=== PATIENT | male | born 1965 | race Caucasian/White ===

== ENCOUNTER 2020-03-23 15:54 | Outpatient (REF) | payer OTHER, SELFPAY | END 2020-03-23 15:55 | disposition home or self-care (01) | LOC: HO.LAB 15:54 | PROVIDERS: PCP Internal Medicine; Visit Provider Internal Medicine | DX: Z20.828 Contact with and (suspected) exposure to other viral communicable diseases (principal) | CPT/HCPCS: U0003 ==

== ENCOUNTER 2020-06-21 13:44 | Outpatient (REF) | payer OTHER, SELFPAY | END 2020-06-21 13:45 | disposition home or self-care (01) | LOC: HO.LAB 13:44 | PROVIDERS: PCP Internal Medicine; Visit Provider Internal Medicine | DX: Z20.822 Contact with and (suspected) exposure to COVID-19 (principal) | CPT/HCPCS: 36415; C9803; U0003 ==

== ENCOUNTER 2020-11-10 09:54 | Outpatient (REF) | payer OTHER, SELFPAY ==
[2020-11-10 10:48] LABS: Anion Gap 11 (12-20); Blood Urea Nitrogen 14 mg/dL (9-16); Calcium 8.5 mg/dL (8.4-10.2); Carbon Dioxide 26 mmol/L (22-29); Chloride 107 mmol/L (96-108); Estimated Glomerular Filt Rate > 60; Glucose Random 111 mg/dL (60-115); Potassium 4.3 mmol/L (3.3-5.1); Sodium 140 mmol/L (135-145)
== END 2020-11-10 09:55 | disposition home or self-care (01) ==
LOC: HO.LAB 09:54
PROVIDERS: PCP Internal Medicine; Visit Provider Internal Medicine
DX: I10 Essential (primary) hypertension (principal)
CPT/HCPCS: 36415; 80048

== ENCOUNTER → 2021-07-19 11:52 | Outpatient (BNVA) | payer OTHER, SELFPAY | PROVIDERS: PCP Internal Medicine; Visit Provider Urology ==

== ENCOUNTER 2021-08-06 10:06 | Outpatient (REF) | payer OTHER, SELFPAY ==
[2021-08-06 12:43] LABS: Hematocrit 43.8 % (42.0-52.0); Hemoglobin 14.5 g/dl (14.0-18.0); Mean Corpuscular HGB Conc 33.1 g/dl (31.0-36.0); Mean Corpuscular Hemoglobin 29.4 pg (27.0-33.0); Mean Corpuscular Volume 88.8 fL (80.0-98.0); Mean Platelet Volume 9.4 fL (9.4-12.4); Platelet Count 243 X10*3/uL (160-400); Red Blood Count 4.93 X10*6/uL (4.60-5.80); Red Cell Distribution Width 12.2 % (11.0-16.0)
[2021-08-06 13:11] LABS: Alanine Aminotransferase 11 U/L (0-40); Albumin Level 4.4 g/dL (3.5-5.0); Alkaline Phosphatase 76 U/L (39-117); Anion Gap 12 (12-20); Aspartate Amino Transferase 26 U/L (5-37); Bilirubin Total 0.7 mg/dL (0.0-1.0); Blood Urea Nitrogen 10 mg/dL (9-16); Calcium 8.9 mg/dL (8.4-10.2); Carbon Dioxide 27 mmol/L (22-29); Chloride 105 mmol/L (96-108); Estimated Glomerular Filt Rate > 60; Glucose Random 102 mg/dL (60-115); Potassium 4.7 mmol/L (3.3-5.1); Sodium 139 mmol/L (135-145); Total Protein 7.3 g/dL (6.5-8.0)
== END 2021-08-06 10:07 | disposition home or self-care (01) ==
LOC: HO.LAB 10:06
PROVIDERS: PCP Internal Medicine; Visit Provider Nurse Practitioner Family
DX: Z12.11 Encounter for screening for malignant neoplasm of colon (principal); F17.210 Nicotine dependence, cigarettes, uncomplicated
CPT/HCPCS: 36415; 80053; 85027; 99202

== ENCOUNTER 2021-08-20 10:50 | Outpatient (REF) | payer OTHER, SELFPAY ==
--- NOTE | 2021-08-20 | PFT_ITS ---
Forced vital capacity 84%, FEV1 77%, FEV1/FVC ratio is 72, NJT40-20 57%. MVV 82%. Post bronchodilator therapy, there is a significant improvement in SOG64-44, to almost normal. Total lung capacity 96%. Residual volume is 127%. Diffusion capacity 90%. CONCLUSION: A mild degree of obstructive airway disorder, mainly involving the smaller airways. There is good response to bronchodilator therapy. These findings are consistent with a mild degree of bronchial asthma. Clinical correlation recommended. MD MARZENA Castillo/MODL / [phone]
== END 2021-08-20 10:51 | disposition home or self-care (01) ==
LOC: HO.RESP 10:50
PROVIDERS: PCP Internal Medicine; Visit Provider Internal Medicine
DX: J44.9 Chronic obstructive pulmonary disease, unspecified (principal); F17.210 Nicotine dependence, cigarettes, uncomplicated
CPT/HCPCS: 94060; 94727; 94729

== ENCOUNTER 2021-09-11 08:55 | Day surgery (SDC) | payer OTHER, SELFPAY ==
--- NOTE | 2021-09-06 12:03 | HO.ANESPROP2 ---
Documented by User: Nayeli Pratt NP 09/06/21 12:05 HPI - Anesthesia Eval Consult details Narrative: 56yo M for Colonoscopy Suboxone daily for OUD PMFSH Active Problems Active Problems: All Active Problems (Updated 09/04/21 @ 10:19 by Estelle Car, RN) Nocturia more than twice per night (Acute) Bladder outlet obstruction (Acute) Past Medical History Medical History Back pain Chronic obstructive pulmonary disease (COPD) Colon cancer screening Depression Hand pain Hx of hepatitis C Opioid dependence Family History Family History Maternal Grandmother Cancer Social History Social History Household Members: Family Alcohol intake: current Alcohol intake frequency: holidays/special occasions only Tobacco use type: Cigar Cigarettes Per Day: 10 Use of substances other than those prescribed or required for medical reasons: No Have you been hit, kicked, punched, or otherwise hurt by someone within the past year? If so, by whom?: No Are you DNR?: No Advance Directives: No Advance Directives Information Provided: Yes Recently lost weight without trying: No Nutrition Risks: No Nutritional Risk Meds Allergies Allergy/AdvReac Type Severity Reaction Status Date / Time No Known Allergies Allergy Verified 09/04/21 10:19 Home Medications Medication Instructions Recorded Confirmed Last Taken Type albuterol sulfate 90 mcg/actuation 2 puff INHALATION Q4-6H PRN 11/05/20 09/04/21 Unknown History aerosol inhaler (ProAir HFA) blood pressure monitor (Blood #1 ea 11/05/20 Unknown History Pressure Kit) buprenorphine 8 mg-naloxone 2 mg 1 film BUCCAL DAILY 11/05/20 09/04/21 09/11/21 History sublingual film (Suboxone) cyclobenzaprine 10 mg tablet 10 mg PO BEDTIME 11/05/20 09/04/21 Unknown History lisinopril 5 mg tablet 5 mg PO DAILY 11/05/20 09/04/21 Unknown History naloxone 4 mg/actuation nasal 4 mg INTRANASAL Q2M PRN 11/05/20 09/04/21 Unknown History spray (Narcan) atorvastatin 80 mg tablet 80 mg PO DAILY 07/19/21 09/04/21 Unknown History ergocalciferol (vitamin D2) 1,250 1,250 mcg PO QWEEK 07/19/21 09/04/21 Unknown History mcg (50,000 unit) capsule rosuvastatin 20 mg tablet 20 mg PO DAILY 07/19/21 09/04/21 Unknown History Exam Exam Date and Time: September 06, 2021 1203 Pertinent Lab Results Pertinent Lab Results: Laboratory Tests 08/06/21 08/06/21 12:00 12:00 WBC 6.0 Hgb 14.5 Hct 43.8 Plt Count 243 Sodium 139 Potassium 4.7 Chloride 105 Carbon Dioxide 27 BUN 10 Creatinine 0.86 Narrative Narrative: PFT 07/2021 CONCLUSION:? A mild degree of obstructive airway disorder, mainly involving the smaller airways. ? There is good response to bronchodilator therapy. ? These findings are consistent with a mild degree of bronchial asthma. ? Clinical correlation recommended. Assessment and Plan Assessment Anesthesia Assessment: Chart Reviewed Documented by User: Audrey Navarrete MD 09/11/21 10:05 [facility], [facility] Past Medical History Medical History Back pain Chronic obstructive pulmonary disease (COPD) Colon cancer screening Depression Hand pain Hx of hepatitis C Opioid dependence Family History Family History Maternal Grandmother Cancer Surgical History History of Problems with Anesthesia: No Social History Social History Household Members: Family Alcohol intake: current Alcohol intake frequency: holidays/special occasions only Tobacco use type: Cigar Cigarettes Per Day: 10 Use of substances other than those prescribed or required for medical reasons: No Have you been hit, kicked, punched, or otherwise hurt by someone within the past year? If so, by whom?: No Are you DNR?: No Advance Directives: No Advance Directives Information Provided: Yes Recently lost weight without trying: No Nutrition Risks: No Nutritional Risk Meds Allergies Allergy/AdvReac Type Severity Reaction Status Date / Time No Known Allergies Allergy Verified 09/04/21 10:19 Home Medications Medication Instructions Recorded Confirmed Last Taken Type albuterol sulfate 90 mcg/actuation 2 puff INHALATION Q4-6H PRN 11/05/20 09/04/21 Unknown History aerosol inhaler (ProAir HFA) blood pressure monitor (Blood #1 ea 11/05/20 Unknown History Pressure Kit) buprenorphine 8 mg-naloxone 2 mg 1 film BUCCAL DAILY 11/05/20 09/04/21 09/11/21 History sublingual film (Suboxone) cyclobenzaprine 10 mg tablet 10 mg PO BEDTIME 11/05/20 09/04/21 Unknown History lisinopril 5 mg tablet 5 mg PO DAILY 11/05/20 09/04/21 Unknown History naloxone 4 mg/actuation nasal 4 mg INTRANASAL Q2M PRN 11/05/20 09/04/21 Unknown History spray (Narcan) atorvastatin 80 mg tablet 80 mg PO DAILY 07/19/21 09/04/21 Unknown History ergocalciferol (vitamin D2) 1,250 1,250 mcg PO QWEEK 07/19/21 09/04/21 Unknown History mcg (50,000 unit) capsule rosuvastatin 20 mg tablet 20 mg PO DAILY 07/19/21 09/04/21 Unknown History Exam Airway Mallampati Class: II TM Dist: >3cm Neck ROM: Full Loose/Missing/Broken Teeth: No Heart: RRR Lungs: CTA Assessment and Plan Assessment Anesthesia Assessment: Anesthesia Plan Discussed Final Anesthetic Review History of Problems with Anesthesia: No NPO: Yes ASA Class: II Final Preanesthetic Review: Meds/Allgs Chart Reviewed, Consent Obtained/Reviewed and Anes Risks/Benef Reviewed Patient Risk: Low Procedure Risk: Low Anesthetic Plan Anesthetic Plan: MAC: Disposition: Standard PACU
[2021-09-11 08:47] VITALS: BMI 34.5
[2021-09-11 09:00] VITALS: BP 168/75; PULSE 74; RESP 18; TEMP 36.2; O2SAT 95
[2021-09-11] MEDS: Lactated Ringers 1,000 ML 100 ML IVCONT (09:19)
--- NOTE | 2021-09-11 09:48 | MHC.SHP ---
Pre-Procedural Eval Section A Date of Service: 09/11/21 Section B Chief Complaint: screening Relevant Family History (Specify if Yes): No Relevant Social History: Tobacco Use Present Medications: see Short Stay Collaborative assessment Medical History: Significant History (Back pain Chronic obstructive pulmonary disease (COPD) Colon cancer screening Depression Hand pain Hx of hepatitis C Opioid dependence) History of Previous Operations: No relevant previous surgery Allergies: Allergies Allergy/AdvReac Type Severity Reaction Status Date / Time No Known Allergies Allergy Verified 09/04/21 10:19 Review of Systems Sugical H&P ROS: Negative: Constitution, Cardiovascular, Respiratory, Neurological, Psychiatric, Hem-Onc, Allergic/Immunologic, Gastrointestinal, Genitourinary, Musculoskeletal, Integumentary, Endocrine and Eyes/Ears/Nose/Throat Exam Surgical H&P Exam: Normal: HEENT, Normal: Heart, Normal: Lungs, Normal: Extremities, Normal: Abdomen, Normal: Skin and Normal: Neurological Plan Diagnosis/Plan: Unchanged I have reviewed the history and physical and performed a pertinent physical examination on my patient. No changes have occurred unless specified.
--- NOTE | 2021-09-11 09:49 | P.BOP_ITS ---
Brief Operative Note Date of Service: 09/11/21 Pre-op diagnosis: colon screening Post-op diagnosis: same Procedure: see op note Surgeon: Jennifer Pedersen MD Anesthesia: MAC Was an Radial Drill Operator For Plastic used for this Procedure?: No Estimated blood loss (mL): 0 Condition: stable Disposition: PACU
--- NOTE | 2021-09-11 09:50 | P.OP_ITS ---
Operative Note Operative Note Date of Service: 09/11/21 Narrative: Operative Information Procedure Description: Colonoscopy Indication: colon screening Anesthesia: MAC COLONOSCOPY Instrument: Olympus variable stiffness ADULT scope 190L Colonoscopy Monitoring: Vital signs and clinical assessment, continuous EKG monitoring, Pulse oximetry, Carbon Dioxide monitoring and blood pressure monitoring were done throughout the procedure. Colon withdrawal time was 13 minutes. Procedure: The patient was placed in the left lateral decubitis position and pre-procedure medications were administered. After a digital rectal examination of the ano-rectum, the video colonoscope was inserted into the rectum and advanced through the colon to the cecum/TI. The colonoscope was slowly withdrawn in a retrograde panoramic fashion and the colon mucosa was carefully examined including a retroflexed view of the rectum. Findings and interventions are described below. Procedure Difficulty: moderate due to looping, left lower abdo pressure applied Findings: Terminal Ileum-normal Cecum:normal Ascending Colon: 6-8 mm sessile polyp removed with cold forceps Transverse Colon -normal Descending Colon:normal Sigmoid Colon: 7-8 mm sessile polyp removed with cold forceps Rectum: Retroflexion with moderate sized internal hemorrhoids, grade I Anorectum - normal Colon preparation: [place] Bowel Preparation Scale Right colon; 2 Transverse colon: 2 Left colon; 2 (0 = Unprepared colon segment with mucosa not seen due to solid stool that cannot be cleared. 1 = Portion of mucosa of the colon segment seen, but other areas of the colon segment not well seen due to staining, residual stool and/or opaque liquid. 2 = Minor amount of residual staining, small fragments of stool and/or opaque liquid, but mucosa of colon segment seen well. 3 = Entire mucosa of colon segment seen well with no residual staining, small fragments of stool or opaque liquid) Impression and Post Procedure Diagnosis: polyps internal hemorrhoids Plan: High fiber diet leaflet Avoid straining at stool, epsom salts and sitz bath, anusol supps or cream Repeat Colonoscopy in 5 years if adenomatous polyps, 10 yrs if hyperplastic or earlier if clinically indicated Above findings were reviewed with the patient and relevant handouts were provided if indicated.
[2021-09-11 10:28] VITALS: BP 110/65; PULSE 55; RESP 18; TEMP 36.2; O2SAT 97
[2021-09-11 10:43] VITALS: BP 115/73; PULSE 57; RESP 16; TEMP 36.2; O2SAT 95
== END 2021-09-11 11:49 ==
LOC: HO.SSS 08:56
PROVIDERS: PCP Internal Medicine; Visit Provider Internal Medicine Gastroenterology
PROC: 0DJD8ZZ Inspection of Lower Intestinal Tract, Via Natural or Artificial Opening Endoscopic (ICD-10-PCS; CPT 45378; principal; 2021-09-11 10:10)
DX: Z12.11 Encounter for screening for malignant neoplasm of colon (principal); D12.2 Benign neoplasm of ascending colon; K63.5 Polyp of colon; K64.0 First degree hemorrhoids; Z86.19 Personal history of other infectious and parasitic diseases; J44.9 Chronic obstructive pulmonary disease, unspecified; F32.9 Major depressive disorder, single episode, unspecified; M54.9 Dorsalgia, unspecified; F11.20 Opioid dependence, uncomplicated; F17.290 Nicotine dependence, other tobacco product, uncomplicated
CPT/HCPCS: 45380; 88305

== ENCOUNTER → 2021-09-17 13:11 | Outpatient (BNVA) | payer OTHER, SELFPAY | PROVIDERS: PCP Internal Medicine; Visit Provider Urology | DX: Z13.89 Encounter for screening for other disorder (principal) ==

== ENCOUNTER → 2021-10-22 10:57 | Outpatient (BNVA) | payer OTHER, SELFPAY | PROVIDERS: PCP Internal Medicine; Referring Provider Internal Medicine; Visit Provider Nurse Practitioner Family | DX: K64.8 Other hemorrhoids (principal); K59.04 Chronic idiopathic constipation; D36.9 Benign neoplasm, unspecified site; Z98.890 Other specified postprocedural states | CPT/HCPCS: 99212 ==

== ENCOUNTER → 2022-09-23 12:10 | Outpatient (BNVA) | payer OTHER, SELFPAY | PROVIDERS: PCP Internal Medicine; Visit Provider Nurse Practitioner Family | DX: K64.8 Other hemorrhoids (principal); K59.01 Slow transit constipation | CPT/HCPCS: 99212 ==

== ENCOUNTER 2023-01-05 11:33 | Outpatient (REF) | payer OTHER, SELFPAY ==
[2023-01-05 14:47] LABS: Alanine Aminotransferase 6 U/L (0-40); Albumin Level 4.3 g/dL (3.5-5.0); Alkaline Phosphatase 61 U/L (39-117); Aspartate Amino Transferase 23 U/L (5-37); Bilirubin Direct 0.1 mg/dL (0.0-0.5); Bilirubin Total 0.5 mg/dL (0.0-1.0); Total Protein 7.5 g/dL (6.5-8.0)
[2023-01-06 04:53] LABS: HIV AB/AG Nonreactive (Nonreactive); HIV Num 1 0.08 S/CO (0.00-0.99)
[2023-01-06 05:05] LABS: ~Hepatitis C Antibody Reactive (Nonreactive)
[2023-01-13 13:53] LABS: HCV Log PCR <1.18 NOT DETECTED Log IU/mL (NOT DETECTED); HepC Viral Load <15 NOT DETECTED IU/mL (NOT DETECTED)
== END 2023-01-05 11:34 | disposition home or self-care (01) ==
LOC: HO.HHCL 11:33
PROVIDERS: Visit Provider Emergency Medicine
DX: Z11.4 Encounter for screening for human immunodeficiency virus [HIV] (principal); F11.20 Opioid dependence, uncomplicated
CPT/HCPCS: 36415; 80076; 86803; 87389; 87522

== ENCOUNTER 2023-03-05 15:23 | Outpatient (AMB) | payer OTHER, SELFPAY ==
--- NOTE | 2021-09-17 13:11 | A.OFFVIS_ITS ---
Intake Intake Visit Reasons: 6-8 week follow-up Intake Note: Patient is present for follow up In School Suspension Aide Required: Yes In School Suspension Aide Name: lance tay Information Interpreted: non-clinical & clinical Accompanied by: Self / Same As Patient Allergies No Known Allergies Allergy (Verified 09/23/22 12:16) HPI HPI Comments History of Present Illness Details Rehan is a pleasant Italian-speaking male. He is a patient of Dr. Conrad. Seen for following urologic conditions - lower urinary tract symptoms Telemedicine evaluation 15 minute consultation Italian translation provided in office by qualified curator medical museum Video attempted Lower urinary tract symptoms Primary issue hesitancy and incomplete emptying Requires going back Nocturia x3 No prior medications Concurrent conditions include hypertension, dyslipidemia, opiate use PSA - 03/11 0.5 Trial of alpha-renita with terazosin 6-8 week follow-up with PVR PFSH Medical History Back pain Chronic obstructive pulmonary disease (COPD) Colon cancer screening Depression Hand pain Hx of hepatitis C Opioid dependence Family History Maternal Grandmother Cancer Social History Household Members: Family Alcohol intake: current Alcohol intake frequency: holidays/special occasions only Tobacco use type: Cigar Cigarettes Per Day: 10 Review of Systems Const All systems reviewed & are unremarkable except as noted in HPI and below Reports no additional complaints Resp Reports no additional complaints GI Reports no additional complaints Reports as per HPI Musc Reports no additional complaints Physical Exam Telemedicine evaluation Appropriate responses Regular breathing rate and rhythm HEENT Head: Yes normal to inspection Ears: hearing grossly normal bilaterally Eyes General: appearance normal, both eyes and all related structures Neck Neck: Yes normal visual inspection Chest Chest palpation & inspection: normal inspection of the chest Resp Effort & Inspection: normal respiratory effort and able to speak in complete sentences Assessment & Plan Assessment & Plan (1) Nocturia more than twice per night: Code(s): R35.1 - Nocturia (2) Bladder outlet obstruction: Code(s): N32.0 - Bladder-neck obstruction Plan Continue terazosin Patient Instructions: Imaging studies, laboratory and physical exam results were discussed and reviewed in detail. No major barriers to patient understanding were identified. An opportunity to ask questions regarding the treatment plan was provided. All questions were answered. The patient expressed understanding and agreement with the above treatment plan. The patient is aware they should contact our office by phone for worsening of their current condition or the appearance of new urologic symptoms. Compliance is encouraged with any medications and followup testing that is ordered. It is a privilege to participate in the urologic care of your patient. If you have any questions or concerns regarding treatment for the above conditions, or other urologic issues, please do not hesitate to contact me. The office telephone contact is [phone]. This note is constructed using voice recognition software. While every effort has been made to ensure accuracy internal grinder set up operator errors may have been included. Yours sincerely, Dr Harrison Ray MD, [facility] - Urology Providers of Expert, Compassionate Care for the Genitourinary System Telehealth Telehealth Location of provider rendering services: practice address Location of patient: address on file Patient Identification confirmed using: Name, : Yes Telehealth method: video Patient verbally consented to treatment: Yes Patient verbally consented to billing insurance company: Yes Patient informed of any privacy concerns related to visit: Yes Coding Level of Care Code Tele Est Pt Level 3 (02320) Diagnoses Nocturia more than twice per night R35.1 Bladder outlet obstruction N32.0
== END 2023-03-05 15:23 | disposition home or self-care (01) ==
PROVIDERS: PCP Internal Medicine; Visit Provider Urology
DX: R35.1 Nocturia (principal); N32.0 Bladder-neck obstruction
CPT/HCPCS: 99213

== ENCOUNTER → 2023-03-05 15:23 | Outpatient (BNVA) | payer OTHER, SELFPAY | PROVIDERS: PCP Internal Medicine; Visit Provider Urology ==

== ENCOUNTER 2023-04-02 11:29 | Outpatient (REF) | payer OTHER, SELFPAY ==
[2023-04-02 13:52] LABS: Anion Gap 11 (12-20); Blood Urea Nitrogen 12 mg/dL (9-16); Calcium 8.3 mg/dL (8.4-10.2); Carbon Dioxide 26 mmol/L (22-29); Chloride 108 mmol/L (96-108); Cholesterol 215 mg/dL (<200); Estimated Glomerular Filt Rate > 60; Glucose Random 101 mg/dL (60-115); HDL Cholesterol 36 mg/dL (>40); LDL Cholesterol Calculated 159 mg/dL (<100); Potassium 4.2 mmol/L (3.3-5.1); Sodium 141 mmol/L (135-145); Triglycerides 102 mg/dL (<150)
[2023-04-02 14:01] LABS: Vitamin D 25-OH Total 34.6 ng/mL (>30)
== END 2023-04-02 11:30 | disposition home or self-care (01) ==
LOC: HO.HHCL 11:29
PROVIDERS: Visit Provider Internal Medicine
DX: I10 Essential (primary) hypertension (principal); E78.2 Mixed hyperlipidemia; E55.9 Vitamin D deficiency, unspecified
CPT/HCPCS: 36415; 80048; 80061; 82306

== ENCOUNTER 2023-11-02 10:18 | Outpatient (REF) | payer OTHER, SELFPAY ==
[2023-11-02 11:57] LABS: Estimated Average Glucose 120 mg/dL; Hemoglobin A1C 151.6134 umol/L; Hemoglobin A1c % 5.8 % (<6.0)
[2023-11-02 12:12] LABS: Anion Gap 14 (12-20); Blood Urea Nitrogen 11 mg/dL (9-16); Calcium 8.8 mg/dL (8.4-10.2); Carbon Dioxide 24 mmol/L (22-29); Chloride 106 mmol/L (96-108); Cholesterol 242 mg/dL (<200); Estimated Glomerular Filt Rate > 60; Glucose Random 107 mg/dL (60-115); HDL Cholesterol 36 mg/dL (>40); LDL Cholesterol Calculated 173 mg/dL (<100); Potassium 4.4 mmol/L (3.3-5.1); Sodium 140 mmol/L (135-145); Triglycerides 168 mg/dL (<150)
[2023-11-02 13:48] LABS: Reflex LDLD? No
== END 2023-11-02 10:19 | disposition home or self-care (01) ==
LOC: HO.HHCL 10:18
PROVIDERS: Visit Provider Internal Medicine
DX: E78.2 Mixed hyperlipidemia (principal); N40.1 Benign prostatic hyperplasia with lower urinary tract symptoms; I10 Essential (primary) hypertension
CPT/HCPCS: 36415; 80048; 80061; 83036; 84153

== ENCOUNTER 2024-08-04 11:27 | Outpatient (REF) | payer OTHER, SELFPAY ==
[2024-08-04 14:06] LABS: Alanine Aminotransferase 32 U/L (0-40); Alkaline Phosphatase 81 U/L (39-117); Anion Gap 11 (12-20); Aspartate Amino Transferase 69 U/L (5-37); Bilirubin Direct 0.2 mg/dL (0.0-0.5); Bilirubin Total 0.6 mg/dL (0.0-1.0); Blood Urea Nitrogen 17 mg/dL (9-16); Calcium 8.3 mg/dL (8.4-10.2); Carbon Dioxide 24 mmol/L (22-29); Chloride 107 mmol/L (96-108); Cholesterol 219 mg/dL (<200); Estimated Glomerular Filt Rate > 60; Glucose Random 119 mg/dL (60-115); HDL Cholesterol 38 mg/dL (>40); LDL Cholesterol Calculated 133 mg/dL (<100); Potassium 4.2 mmol/L (3.3-5.1); Sodium 138 mmol/L (135-145); Total Protein 7.4 g/dL (6.5-8.0); Triglycerides 242 mg/dL (<150)
[2024-08-04 14:43] LABS: Reflex LDLD? No
--- OUTSIDE RECORDS SUMMARY | 2024-08-04 14:48 | XMS_ITS | Encounter Summary ---
Author Organization [employer] Address [address] [place] [address] 7 [place] [address] Care Team Providers Care Brancher Name Role Phone Rosario Conrad MD Primary Care Provider + Reason for Visit * Reason Comments Med Refill Encounter Details Date Type Department Care Team ([facility] st Contact Info) Description 01/13/2024 Refill [facility] [address] [place] [address] Shanwee Odom MD [address] [place] [address] Opioid dependence in remission (CMS/HCC) Social History Tobacco Use Types Packs/Day Years Used Date Smoking Tobacco: Every Day Cigarettes Smokeless Tobacco: Never Alcohol Use Standard Drinks/Week Comments Yes 0 (1 standard drink = 0.6 oz pur e alcohol) rare Alcohol Answer Date Recorded Frequency of Alcohol Consumption Not on file 09/30/2023 Average Number of Drinks Not on file 024 Frequency of Binge Drinking Not on file 12/2023 Score 0 09/30/2023 Depression Answer Date Recorded Patient Health Questionnaire-9 Score 0 09/30/2023 Patient Health Questionnaire-9 Score 0 09/30/2023 Last PHQ-9: Questionnaire Data Not on file 0 09/30/2023 Housing Stability Answer Date Recorded What is your housing situation today? I have nirmal carey 09/30/[address] you li ve. Do you have problems with any of the following? None of the above 09/30/2023 Food Insecurity Answer Date Recorded Within the past 12 months, y ou worried that your food would run out before you got money to buy more: Never True 09/30/2023 Within the past 12 months,th e food you bought just didn't last and you didn't have enough money to get more: Never True 12/2023 Transportation Answer Date Recorded In the past 12 months, has l ack of transportation kept you from medical appts, meetings, work or from getting things needed for daily living? No 09/30/2023 Utilities Answer Date Recorded In the past 12 months, has t he electric, gas, oil or water company threatened to shut off services in your home? No 09/30/2023 Depression Answer Date Recorded Patient Health Questionnaire-2 Score 0 09/30/2023 Sex and Gender Information Value Date Recorded Sex Assigned at Male 03/24/2022 10:16 AM EDT Legal Sex Male 10:16 AM EDT Gender Identity Male 03/24/2022 10:16 AM EDT Sexual Orientation Straight 03/24/2022 10 :16 AM EDT documented as of this encounter Plan of Treatment Upcoming Encounters Date Type Department Care Team (Late st Contact Info) Description 08/31/2024 9:00 AM EDT Clinical Support [facility] [address] [place] [id number] Julio Cesar Kemp, EDVANG [address] [place] [address] documented as of this encounter Visit Diagnoses Diagnosis Opioid dependence in remission (CMS/HCC) Opioid type dependence, in remission documented in this encounter Additional Health Concerns Assessment Noted Time PHQ-9 Depression Total Score: 0 09/30/19 24 10:11 AM EDT documented as of this encounter Care Teams Brancher Relationship Specialty Start Date End Date Rosario Conrad MD [address] [place] [id number] PCP - General Family Medicine 01/12/17 documented as of this encounter
--- OUTSIDE RECORDS SUMMARY | 2024-08-04 14:48 | XMS_ITS | Encounter Summary ---
Author Organization [employer] Address [address] [place] [address] 7 [place] [address] Care Team Providers Care Vibration Technician Name Role Phone Rosario Conrad MD Primary Care Provider + Reason for Visit * Reason Comments Pre-visit Planning SDOH screening negat deb and tobacco screening negative Encounter Details Date Type Department Care Team (Late st Contact Info) Description 07/26/2024 Patient Outreach [facility] [address] [place] [address] Rosario Conrad MD [address] [place] [address] Pre-visit Planning (SDOH screening negative and tobacco screening negative) Social History Tobacco Use Types Packs/Day Years [...] Recorded Patient Health Questionnaire-2 Score 0 09/30/2023 Internet Access Answer Date Recorded Internet Access Q1 Yes 07/26/2024 Internet Access Q2 Not on file 07/26/2024 Sex and Gender Information Value Date Recorded Sex Assigned at Male 03/24/2022 10:16 AM EDT Legal Sex Male 10:16 AM EDT Gender Identity Male 03/24/2022 10:16 AM EDT Sexual Orientation Straight 03/24/2022 10 :16 AM EDT documented as of this encounter Progress Notes * Ashley Ceballos - 07/26/2024 10:52 AM EST RADHA Ramirez placed successful outbound call to patient for pre-visit planning. Patient name and confirmed. Patient confirms appt date and time, and has transportation. Biggest concern for appointment at this time is joint pain and circulation of legs Patient advised to bring to appointment a photo id and insurance card. Appropriate screenings completed in anticipation of appointment. documented in this encounter Plan of Treatment Upcoming Encounters Date Type Department Care Team (Late st Contact Info) Description 08/31/2024 9:00 AM EDT Clinical Support [facility] [address] [place] [address] Julio Cesar Kemp, RN [address] [place] [address] documented as of this encounter Visit Diagnoses Not on filedocumented in this encounter Additional Health Concerns Assessment Noted Time PHQ-9 Depression Total Score: 0 09/30/19 24 10:11 AM EDT documented as of this encounter Care Teams Vibration Technician Relationship Specialty Start Date End Date Rosario Conrad MD [address] [place] [id number] PCP - General Family Medicine 01/12/17 documented as of this encounter
--- OUTSIDE RECORDS SUMMARY | 2024-08-04 14:48 | XMS_ITS | Encounter Summary ---
Author Organization [employer] Address [address] [facility] [address] [place] [address] Care Team Providers Care Lumber Straightened Name Role Phone Rosario Conrad MD Primary Care Provider + Encounter Details Date Type Department Care Team (Latest Contact Info) Description 08/02/2024 Travel Social History Tobacco Use Types Packs/Day Years [...] Description 08/31/2024 9:00 AM EDT Clinical Support [facility] [address] [place] [address] Julio Cesar Kemp RN [address] [place] [address] documented as of this encounter Visit Diagnoses Not on filedocumented in this encounter Additional Health Concerns Assessment Noted Time PHQ-9 Depression Total Score: 0 09/30/19 24 10:11 AM EDT documented as of this encounter Care Teams Lumber Straightened Relationship Specialty Start Date End Date Rosario Conrad MD [address] [place] [address] PCP - General Family Medicine 01/12/17 documented as of this encounter
--- OUTSIDE RECORDS SUMMARY | 2024-08-04 14:48 | XMS_ITS | Encounter Summary ---
Author Organization [employer] Address [address] [facility] [address] [place] [address] Care Team Providers Care Chef French Name Role Phone Rosario Conrad MD Primary Care Provider + Encounter Details Date Type Department Care Team (Late st Contact Info) Description 10/21/2023 Orders Only [facility] [address] [place], [place] [phone] Provider, MD Rodolfo Social History Tobacco Use Types Packs/Day Years [...] Description 08/31/2024 9:00 AM EDT Clinical Support [facility] [address] [place] [address] Julio Cesar Kemp RN [address] [place] [address] documented as of this encounter Procedures Procedure Name Priority Date/Time Associated Diagnosis Comments COLONOSCOPY Routine 09/11/2021 8:25 AM EDT documented in this encounter Results * Hm Colonoscopy (09/11/2021 8:25 AM EDT) Historical Provider HEALTH MAINTENANCE Final Result documented in this encounter Visit Diagnoses Not on filedocumented in this encounter Additional Health Concerns Assessment Noted Time PHQ-9 Depression Total Score: 0 09/30/19 24 10:11 AM EDT documented as of this encounter Care Teams Chef French Relationship Specialty Start Date End Date Rosario Conrad MD [address] [place] [address] PCP - General Family Medicine 01/12/17 documented as of this encounter
--- OUTSIDE RECORDS SUMMARY | 2024-08-04 14:48 | XMS_ITS | Encounter Summary ---
Author Organization [employer] [facility] Address [address] [place] [address] [address] [place] [address] Care Team Providers Care Chemical Checker Name Role Phone Rosario Conrad MD Primary Care Provider + Encounter Details Date Type Department Care Team (Latest Contact Info) Description 05/31/[address] [facility] CONVERSIONS Dental, Provider, DDS Social History Tobacco Use Types Packs/Day Years Used Date Smoking Tobacco: Never Assessed Sex and Gender Information Value Date Recorded Sex Assigned at Male 03/24/2022 10:16 AM EDT Legal Sex Male 10:16 AM EDT Gender Identity Male 03/24/2022 10:16 AM EDT Sexual Orientation Straight 03/24/2022 10 :16 AM EDT documented as of this encounter Plan of Treatment Upcoming Encounters Date Type Department Care Team ( st Contact Info) Description 08/31/2024 9:00 AM EDT Clinical Support [facility] [address] [place] [address] Julio Cesar Kemp, DEVANG [address] [place] [address] documented as of this encounter Visit Diagnoses Not on filedocumented in this encounter Care Teams Chemical Checker Relationship Specialty Start Date End Date Rosario Conrad MD [address] [place] [address] PCP - General Family Medicine 01/12/17 documented as of this encounter
--- OUTSIDE RECORDS SUMMARY | 2024-08-04 14:48 | XMS_ITS | Encounter Summary ---
Author Organization [employer] Address [address] [place] [address] [place] [address] Care Team Providers Care Trigonometry Tutor Name Role Phone Rosario Conrad MD Primary Care Provider + Reason for Referral * Consultation (Routine) - Authorized Specialty Diagnoses / Procedures Referred By Godfrey t Referred To Contact Urology Diagnoses Lower urinary tract symptoms (LUTS) Rosario Conrad MD [address] [place] [address] Phone: tel: fax: [facility] [address] [place], [place] Phone: tel: fax: Referral ID Status Reason Start Date Expiration Date Visits Requested Visits Authorized [id number] Authorized Specialty Services Required 08/02/2024 08/02/2025 1 1 * Consultation (Routine) - Closed Specialty Diagnoses / Procedures Referred By Contac t Referred To Contact Occupational Therapy Diagnoses Chronic right shoulder pain Medial epicondylitis of elbow, unspecified laterality Rosario Conrad MD [address] [place] [address] Phone: tel: fax: [facility] [address], [place] Phone: tel: fax: Referral ID Status Reason Start Date Expiration Date V isits Requested Visits Authorized [id number] Closed Specialty Services Required 08/02/2024 08/02/2025 1 1 Reason for Visit * Reason Comments Lab Orders Encounter Details Date Type Department Care Team (Latest Contact Info) Description 08/02/2024 10:30 AM EDT Office Visit [facility] [address] [place], [place] [phone] Rosario Conrad MD [address] [place], [place] [phone] Benign hypertension (Primary Dx); Lower urinary tract symptoms (LUTS); Chronic obstructive pulmonary disease, unspecified COPD type (CMS/HCC); Chronic right shoulder pain; Medial epicondylitis of elbow, unspecified laterality; Uncomplicated opioid dependence (CMS/HCC); OM (onychomycosis); Class 1 obesity due to excess calories with serious comorbidity and body mass index (BMI) of 31.0 to 31.9 in adult; Dietary counseling; Exercise counseling; Encounter for immunization Social History Tobacco Use Types Packs/Day Years Used Date Smoking Tobacco: Every Day Cigarettes Smokeless Tobacco: Never Tobacco Cessation:Ready to Q uit: Not Asked; Counseling Given: Not Answered Alcohol Use Standard Drinks/Week Comments Yes 0 [...] AM EDT documented as of this encounter Last Filed Vital Signs Vital Sign Reading Time Taken Comments Blood Pressure 146/86 08/02/2024 10:31 AM EDT Pulse 57 08/02/2024 10:31 AM EDT Temperature 35.5 ??C (95.9 ??F) 08/02/2024 10:31 AM E DT Respiratory Rate 12 08/02/2024 10:31 AM EDT Oxygen Saturation 99% 08/02/2024 10:31 AM EDT Inhaled Oxygen Concentration - - Weight 105 kg (231 lb 2 oz) 08/02/2024 10:31 AM EDT Height 182.9 cm (6') 08/02/2024 10:31 AM EDT Body Mass Index 31.35 08/02/2024 10:31 AM EDT documented in this encounter Progress Notes * Rosario Conrad MD - 08/02/2024 10:30 AM EDT SUBJECTIVE: Rehan Ye is a 59 y.o. year old male who presents for follow up. Denies recent illness,injury, or hospitalization. Pt comes in for a fu on OA and labs. He reports continuing taking Lisinopril and Suboxone and doing well with the medications. He also reports having his BP and cholesterol medications. Acute Concerns: He complains of bilateral elbow and shoulder pain, along with weakness in his arms. He reports the pain to be slightly worse on the right side and takes Ibuprofen for the pain, but says it only slightly helps. Pt complains of increased urinary frequency at night, along with hesitancy. Social History Social History Narrative Not on file Patient Active Problem List Diagnosis Benign hypertension Benign localized prostatic hyperplasia with lower urinary tract symptoms (LUTS) Chronic obstructive lung disease (CMS/HCC) Contact with and (suspected) exposure to covid-19 COVID-19 Depressive disorder Mixed hyperlipidemia Opioid dependence (CMS/HCC) Primary osteoarthritis of right knee Shoulder pain Tobacco dependence syndrome Uncomplicated varicose veins Mild persistent asthma without complication Vesical tenesmus Vitamin D deficiency Screening for colorectal cancer Mild intermittent asthma with acute exacerbation Bilateral leg cramps Dental caries Dental abscess OM (onychomycosis) Lower urinary tract symptoms (LUTS) Class 1 obesity due to excess calories with serious comorbidity and body mass index (BMI) of 31.0 to 31.9 in adult Medial epicondylitis of elbow No family history on file. Review of Systems Constitutional: Negative for fever. HENT: Negative for congestion, ear pain, rhinorrhea and sore throat. Eyes: Negative for pain and discharge. Respiratory: Negative for cough and shortness of breath. Cardiovascular: Negative for chest pain. Gastrointestinal: Negative for abdominal pain, constipation, diarrhea and nausea. Endocrine: Negative for polydipsia. Genitourinary: Positive for frequency. Negative for dysuria. Musculoskeletal: Positive for arthralgias. Negative for back pain and neck pain. Neurological: Negative for dizziness, numbness and headaches. Psychiatric/Behavioral: Negative for agitation. OBJECTIVE: Vitals: 08/02/24 1031 BP: (!) 146/86 Pulse: 57 Resp: 12 Temp: 95.9 ??F (35.5 ??C) SpO2: 99% Physical Exam Constitutional: Appearance: Normal appearance. HENT: Right Ear: Tympanic membrane and ear canal normal. Left Ear: Tympanic membrane and ear canal normal. Mouth/Throat: Mouth: Mucous membranes are moist. Pharynx: No oropharyngeal exudate or posterior oropharyngeal erythema. Eyes: Pupils: Pupils are equal, round, and reactive to light. Cardiovascular: Rate and Rhythm: Normal rate and regular rhythm. Heart sounds: No murmur heard. Pulmonary: Breath sounds: Normal breath sounds. No wheezing. Abdominal: General: Bowel sounds are normal. Palpations: Abdomen is soft. Tenderness: There is no abdominal tenderness. Musculoskeletal: Right elbow: Tenderness (decreased strength) present in medial epicondyle. Left elbow: Tenderness present in medial epicondyle. Cervical back: Normal range of motion. No tenderness. Skin: General: Skin is warm. Neurological: General: No focal deficit present. Mental Status: He is alert and oriented to person, place, and time. Psychiatric: Mood and Affect: Mood normal. Problem List Items Addressed This Visit Benign hypertension - Primary Controlled. Compliant w/meds Continue Lisinopril. Counseled re low salt diet/increase moderate physical activity. Check home BP BIW and prn CP/CLOUD/PUENTES Non smoking patient. Relevant Orders Lipid Panel with Reflex to Direct LDL Basic Metabolic Panel Lower urinary tract symptoms (LUTS) Most likely BPH, he will restart Flomax at night. Refer to Urology. Relevant Orders Referral to Urology Chronic obstructive lung disease ([facility]) Doing well on Albuterol prn only. He agreed to have Influenza immunization today. Shoulder pain Secondary to OA, will refer to PT after next visit. Continue taking Tylenol prn. Relevant Orders Referral to Occupational Therapy Medial epicondylitis of elbow Most likely secondary to OA, refer to OT. Take Tylenol prn. Relevant Orders Referral to Occupational Therapy Opioid dependence ([facility]) Doing well and follow ups with [facility] program, last time seen was last month. Doing well on Suboxone. OM (onychomycosis) Significantly improving with Penlac. Class 1 obesity due to excess calories with serious comorbidity and body mass index (BMI) of 31.0 to 31.9 in adult Discussed re weight reduction options including exercise, life style modifications, diet. Recommended to decrease soda and sugary beverage consumption, increase protein intake with meals (at least 1 portion of protein with each meal) to assist with satiety, increase dietary fiber Recommended at least 150 min/week of moderate intensity exercise. Other Visit Diagnoses Dietary counseling Exercise counseling Encounter for immunization Relevant Orders FLU VACCINE TRIVALENT (Fluarix) 6 mo + (Completed) Follow Up: Current Outpatient Medications on File Prior to Visit Medication Sig Dispense Refill albuterol (ProAir HFA) 108 (90 Base) MCG/ACT inhaler Inhale 1-2 puffs every 4 (four) hours if needed for wheezing or shortness of breath. 18 g 2 Blood Pressure kit buprenorphine-naloxone (Suboxone) 12-3 MG per sublingual film Place 1 Film under the tongue Once per day. 28 Film 1 ciclopirox (Penlac) 8 % solution Apply topically at bedtime. 6 mL 6 ibuprofen 600 MG tablet Take 1 tablet (600 mg) by mouth every 6 (six) hours if needed for mild painfor up to 20 doses. 20 tablet 0 lisinopril 10 MG tablet TAKE 1 TABLET BY MOUTH EVERY DAY 30 tablet 11 naloxone (Narcan) 4 mg/0.1 mL nasal spray Administer 4 mg into affected nostril(s) if needed for opioid reversal. May repeat every 2-3 minutes if needed, alternating nostrils, until medical assistance becomes available. nicotine polacrilex (Nicorette) 4 MG gum Take 1 each by mouth every 2 (two) hours if needed. rosuvastatin (Crestor) 20 MG tablet Take 1 tablet (20 mg) by mouth at bedtime. 30 tablet 6 [DISCONTINUED] ammonium lactate (Amlactin) 12 % cream if needed each day. [DISCONTINUED] tamsulosin (Flomax) 0.4 MG 24 hr capsule Take 1 capsule (0.4 mg) by mouth at bedtime. 30 capsule 4 No current facility-administered medications on file prior to visit. I, Edna Solo, am serving as a scribe to document services personally performed by Dr. Rosario Conrad, based on the patient's response to questions by provider and provider's statements to me. documented in this encounter Miscellaneous Notes * Assessment & Plan Note - Edna Solo - 08/02/2024 1:57 PM EDTAssociated Problem(s): Class 1 obesity due to excess calories with serious comorbidity and body mass index (BMI) of 31.0 to 31.9 in adult Discussed re weight reduction options including exercise, life style modifications, diet. Recommended to decrease soda and sugary beverage consumption, increase protein intake with meals (at least 1 portion of protein with each meal) to assist with satiety, increase dietary fiber Recommended at least 150 min/week of moderate intensity exercise. * Assessment & Plan Note - Edna Solo - 08/02/2024 1:57 PM EDTAssociated Problem(s): Medial epicondylitis of elbow Most likely secondary to OA, refer to OT. Take Tylenol prn. * Assessment & Plan Note - Edna Solo - 08/02/2024 1:56 PM EDTAssociated Problem(s): OM (onychomycosis) Significantly improving with Penlac. * Assessment & Plan Note - Edna Solo - 08/02/2024 1:56 PM EDTAssociated Problem(s): Shoulder pain Secondary to OA, will refer to PT after next visit. Continue taking Tylenol prn. * Assessment & Plan Note - Edna Solo - 08/02/2024 1:55 PM EDTAssociated Problem(s): Lower urinary tract symptoms (LUTS) Most likely BPH, he will restart Flomax at night. Refer to Urology. * Assessment & Plan Note - Edna Solo - 08/02/2024 1:55 PM EDTAssociated Problem(s): Benign hypertension Controlled. Compliant w/meds Continue Lisinopril. Counseled re low salt diet/increase moderate physical activity. Check home BP BIW and prn CP/CLOUD/PUENTES Non smoking patient. * Assessment & Plan Note - Edna Solo - 08/02/2024 1:55 PM EDTAssociated Problem(s): Chronic obstructive lung disease (CMS/HCC) Doing well on Albuterol prn only. He agreed to have Influenza immunization today. * Assessment & Plan Note - Edna Solo - 08/02/2024 10:57 AM EDTAssociated Problem(s): Opioid dependence (CMS/HCC) Doing well and follow ups with [facility] program, last time seen was last month. Doing well on Suboxone. * Result Encounter Note - Rosario Conrad MD - 08/02/2024 10:30 AM EDT Labs on 08/04/2024 showed persistently elevated lipid profile with an LDL of 133. Please call patient and tell him that his cholesterol still high despite being on Crestor 20 mg so we will increase Crestor to 40 mg at night and please tell him to check blood work in approximately 6 to 8 weeks to monitor the medication and follow-up with me as recommended. Please remind him about doing moderate amount of exercise and increase consumption of fruit, vegetables, fish and high fiber foods. He should decrease consumption of highly saturated fats or trans fats. documented in this encounter Plan of Treatment Upcoming Encounters Date Type Department Care Team (Late st Contact Info) Description 08/31/2024 9:00 AM EDT Clinical Support [facility] [address] [place] [address] Julio Cesar Kemp, RN [address] [place] [address] Scheduled Referrals Name Type Priority Associated Diagnoses Orde r Schedule Referral to Occupational Therapy Outpatient Referral Routine Chronic right shoulder pain Medial epicondylitis of elbow, unspecified laterality Expected: 08/02/2024 (Approximate), Expires: 08/02/2025 Referral to Urology Outpatient Referral Routine Lower urinary tract symptoms (LUTS) Expected: 08/02/2024 (Approximate), Expires: 08/02/2025 documented as of this encounter Procedures Procedure Name Priority Date/Time Associated Diagnosis Comments LIPID PANEL WITH REFLEX TO DIRECT LDL Routine 08/04/2024 11:31 AM EDT Benign hypertension BASIC METABOLIC PANEL Routine 08/04/2024 11:31 AM EDT Benign hypertension documented in this encounter Results * (ABNORMAL) Basic Metabolic Panel (08/04/2024 11:31 AM EDT) Sodium 138 135 - 145 mmol/L [facility] Potassium 4.2 3.3 - 5.1 mmol/L [facility] Chloride 107 96 - 108 mmol/L [facility] Carbon Dioxide 24 22 - 29 mmol/L [facility] Anion Gap 11(L) 12 - 20 [facility] Urea Nitrogen (BUN) 17(H) 9 - 16 mg/dL [facility] Creatinine, Serum 0.85 0.5 - 1.4 mg/dL [facility] Estimated Glomerular Filt Rate >60 [facility] Comment:Chronic Kidney Disea se: Estimated GFR < 60 mL/min/1.47f8Wthned Kidney Disease: Estimated GFR < 15 mL/min/1.73m2 Glucose 119(H) 60 - 115 mg/dL [facility] Calcium 8.3(L) 8.4 - 10.2 mg/dL [facility] Blood Venous blood specimen / Unknown 08/04/2024 11:31 AM EDT 08/04/2024 1:35 PM EDT us Rosario Conrad MD LAB BLOOD ORDERABLES Fin al Result [facility] [address] [place] [phone] * (ABNORMAL) Lipid Panel with Reflex to Direct LDL (08/04/2024 11:31 AM EDT) Triglycerides 242(H) <150 mg/dL [facility] Comment:Desirable Triglyceri de: less than 150 mg/dLBorderline High Triglyceride 150-199 mg/dLHigh Triglyceride: 200-499 mg/dLVery High Triglyceride: greater than or equal to 5OO mg/dL Cholesterol 219(H) <200 mg/dL [facility] Comment:Desirable Cholestero l: less than 200 mg/dLBorderline High Cholesterol: 200-239 mg/dLHigh Cholesterol: greater than 239 mg/dL LDL Cholesterol Calculated 133(H) <100 mg/dL [facility] Comment:Desirable LDL: less than 100 mg/dLNear Optimal/Above Optimal LDL: 110- 129 mg/dLBorderline High LDL: 130-159 mg/dLHigh LDL: 160-189 mg/dLVery High LDL: greater than or equal to 190 mg/dL HDL Cholesterol 38(L) >40 mg/dL [facility] Comment:Desirable HDL: great er than 40 mg/dL Note: This HDL assay may give artificially low results in patients with liver disease. Blood 08/04/2024 11:3 1 AM EDT 08/04/2024 1:35 PM EDT us Rosario Conrad MD LAB BLOOD ORDERABLES Fin al Result [facility] [address] [place] [phone] documented in this encounter Visit Diagnoses Diagnosis Benign hypertension- Primary Essential hypertension, benign Lower urinary tract symptoms (LUTS) Chronic obstructive pulmonary disease, unspecified COPD type (CMS/HCC) Chronic right shoulder pain Pain in joint, shoulder region Medial epicondylitis of elbow, unspecified laterality Uncomplicated opioid dependence (CMS/HCC) OM (onychomycosis) Dermatophytosis of nail Class 1 obesity due to excess calories with serious comorbidity and body mass index (BMI) of 31.0 to 31.9 in adult Dietary counseling Dietary surveillance and counseling Exercise counseling Encounter for immunization documented in this encounter Additional Health Concerns Assessment Noted Time PHQ-9 Depression Total Score: 0 09/30/19 24 10:11 AM EDT documented as of this encounter Care Teams Trigonometry Tutor Relationship Specialty Start Date End Date Rosario Conrad MD [address] [place] [id number] PCP - General Family Medicine 01/12/17 documented as of this encounter
--- OUTSIDE RECORDS SUMMARY | 2024-08-04 14:48 | XMS_ITS | Encounter Summary ---
Author Organization [employer] Address [address] [place] [address] [address] [place] [address] Care Team Providers Care Pack Mule Worker Name Role Phone Rosario Conrad MD Primary Care Provider + Reason for Visit * Reason Comments Med Refill Encounter Details Date Type Department Care Team ([facility] st Contact Info) Description 07/29/2023 Refill [facility] [address] [place] [address] Shawnee Odom MD [address] [place] [address] Opioid dependence in remission (CMS/HCC) Social History Tobacco Use Types Packs/Day Years Used Date Smoking Tobacco: Every Day Cigarettes Smokeless Tobacco: Never Alcohol Use Standard Drinks/Week Comments Yes 0 (1 standard drink = 0.6 oz pur e alcohol) rare Housing Stability Answer Date Recorded What is your housing situation today? I have nirmal carey 03/25/[address] you li ve. Do you have problems with any of the following? I am not sure;None of the above 03/25/2023 Food Insecurity Answer Date Recorded Within the past 12 months, y ou worried that your food would run out before you got money to buy more: Never True 03/25/2023 Within the past 12 months,th e food you bought just didn't last and you didn't have enough money to get more: Never True 05/2022 Transportation Answer Date Recorded In the past 12 months, has l ack of transportation kept you from medical appts, meetings, work or from getting things needed for daily living? No 03/25/2023 Utilities Answer Date Recorded In the past 12 months, has t he electric, gas, oil or water company threatened to shut off services in your home? No 03/25/2023 Depression Answer Date Recorded Patient Health Questionnaire-2 Score 0 09/26/2022 Sex and Gender Information Value Date Recorded Sex Assigned at Male 03/24/2022 10:16 AM EDT Legal Sex Male 10:16 AM EDT Gender Identity Male 03/24/2022 10:16 AM EDT Sexual Orientation Straight 03/24/2022 10 :16 AM EDT documented as of this encounter Plan of Treatment Upcoming Encounters Date Type Department Care Team (Late st Contact Info) Description 08/31/2024 9:00 AM EDT Clinical Support [facility] [address] [place] [phone] Julio Cesar Kemp, DEVANG [address] [place] [phone] documented as of this encounter Visit Diagnoses Diagnosis Opioid dependence in remission ([facility]) Opioid type dependence, in remission documented in this encounter Care Teams Pack Mule Worker Relationship Specialty Start Date End Date Rosario Conrad MD [address] [place] [phone] PCP - General Family Medicine 01/12/17 documented as of this encounter
--- OUTSIDE RECORDS SUMMARY | 2024-08-04 14:49 | XMS_ITS | Encounter Summary ---
Author Organization [employer] Address [address] [facility] [address] [place] [address] Care Team Providers Care Technical Intern Name Role Phone Rosario Conrad MD Primary Care Provider + Encounter Details Date Type Department Care Team (Latest Contact Info) Description 07/06/2024 Travel Social History Tobacco Use Types Packs/Day [...] Description 08/31/2024 9:00 AM EDT Clinical Support [facility] [address] [place] [address] Julio Cesar Kemp, RN [address] [place] [address] documented as of this encounter Visit Diagnoses Not on filedocumented in this encounter Additional Health Concerns Assessment Noted Time PHQ-9 Depression Total Score: 0 09/30/19 24 10:11 AM EDT documented as of this encounter Care Teams Technical Intern Relationship Specialty Start Date End Date Rosario Conrad MD [address] [place] [address] PCP - General Family Medicine 01/12/17 documented as of this encounter
--- OUTSIDE RECORDS SUMMARY | 2024-08-04 14:49 | XMS_ITS | Clinical Summary ---
Author Organization [employer] Address [address] [place] [address] Care Team Providers Care Business Excellence Leader Name Role Phone Rosario Conrad MD Primary Care Provider + Allergies No known active allergies Medications nicotine polacrilex (Nicorette) 4 MG gum Take 1 each by mouth every 2 (two) hours if needed. 03/30/20 20 Active Blood Pressure kit Active naloxone (Narcan) 4 mg/0.1 mL nasal spray Administer 4 mg into affected nostril(s) if needed for opioid reversal. May repeat every 2-3 minutes if needed, alternating nostrils, until medical assistance becomes available. Active albuterol (ProAir HFA) 108 (90 Base) MCG/ACT inhalerIndicati ons:Mild intermittent asthma with acute exacerbation Inhale 1-2 puffs every 4 (four) hours if needed for wheezing or shortness of breath. 18 g 2 09/27/19 23 Active ibuprofen 600 MG tabletIndicatio ns:Pain due to dental caries Take 1 tablet (600 mg) by mouth every 6 (six) hours if needed for mild pain for up to 20 doses. 20 tablet 08/14/19 24 Active ciclopirox (Penlac) 8 % solution Apply topically at bedtime. 6 mL 6 04/01/20 24 2024 Active lisinopril 10 MG tabletIndicatio ns:Primary hypertension TAKE 1 TABLET BY MOUTH EVERY DAY 30 tablet 11 05/12/20 24 Active buprenorphine-n aloxone (Suboxone) 12-3 MG per sublingual filmIndications :Opioid dependence in remission (CMS/HCC) Place 1 Film under the tongue Once per day. 28 Film 1 06/29/19 25 2024 Active tamsulosin (Flomax) 0.4 MG 24 hr capsule Take 1 capsule (0.4 mg) by mouth at bedtime. 30 capsule 4 08/03/19 25 2025 Active ammonium lactate (Amlactin) 12 % cream Apply topically if needed each day for dry skin. 385 g 1 08/03/19 Active triamcinolone (Kenalog) 0.5 % cream Apply topically 3 times daily. 45 g 1 08/03/19 Active rosuvastatin (Crestor) 40 MG tablet Take 1 tablet (40 mg) by mouth at bedtime. 30 tablet 11 08/05/19 25 2025 Active ammonium lactate (Amlactin) 12 % cream if needed each day. 05/09/20 21 2024 Discontinued(R eorder (will not trigger notification to Pharmacy)) tamsulosin (Flomax) 0.4 MG 24 hr capsule Take 1 capsule (0.4 mg) by mouth at bedtime. 30 capsule 4 10/23/19 24 2024 Discontinued(R eorder (will not trigger notification to Pharmacy)) rosuvastatin (Crestor) 20 MG tablet Take 1 tablet (20 mg) by mouth at bedtime. 30 tablet 6 11/05/19 24 2024 Discontinued(R eorder (will not trigger notification to Pharmacy)) betamethasone dipropionate 0.05 % cream Apply topically 2 times daily. 45 g 1 08/03/19 25 2024 Discontinued(F ormulary change) Active Problems Problem Noted Date Diagnosed Date Lower urinary tract symptoms (LUTS) 08/02/2024 Assessment & Plan (08/02/2024 1:55 PM EDT): Most likely BPH, he will restart Flomax at night. Refer to Urology. Class 1 obesity due to exces s calories with serious comorbidity and body mass index (BMI) of 31.0 to 31.9 in adult 08/02/2024 Assessment & Plan (08/02/2024 1:57 PM EDT): Discussed re weight reduction options including exercise, life style modifications, diet. Recommended to decrease soda and sugary beverage consumption, increase protein intake with meals (at least 1 portion of protein with each meal) to assist with satiety, increase dietary fiber Recommended at least 150 min/week of moderate intensity exercise. Medial epicondylitis of elbow 08/02/2024 Assessment & Plan (08/02/2024 1:57 PM EDT): Most likely secondary to OA, refer to OT. Take Tylenol prn. OM (onychomycosis) 04/01/2024 Assessment & Plan (08/02/2024 1:56 PM EDT): Significantly improving with Penlac. Assessment & Plan (05/27/2024 8:25 PM EST): Will rx Penlac x 6 mo and fu Dental caries 01/22/2024 Dental abscess 01/22/2024 Bilateral leg cramps 03/26/2023 Assessment & Plan (03/26/2023 11:59 AM EDT): Counseled to cont physical activity, increase water intake, wear warm socks overnight Check BMP and use compressions stockings and fu prn Mild intermittent asthma with acute exacerbation 09/26/2022 Assessment & Plan (09/26/2022 11:30 AM EDT): use albuterol q4 hours for the next 3 days if no improvement can come to [facility] for an appointment counceled to quit smoking counseled to come into our walk in Covvt clinic for IZ FU in 3 months. Benign hypertension 04/15/2022 Assessment & Plan (08/02/2024 1:55 PM EDT): Controlled. Compliant w/meds Continue Lisinopril. Counseled re low salt diet/increase moderate physical activity. Check home BP BIW and prn CP/CLOUD/PUENTES Non smoking patient. Assessment & Plan (05/27/2024 8:21 PM EST): Controlled. Compliant w/meds Continue lisinopril same dose Counseled re low salt diet/increase moderate physical activity. Check home BP BIW and prn CP/CLOUD/PUENTES Advised to quit smoking. Assessment & Plan (10/23/2023 3:23 PM EDT): Controlled. Compliant w/meds Continue lisinopril 10mg Counseled re low salt diet/increase moderate physical activity. Check home BP BIW and prn CP/CLOUD/PUENTES Non smoking patient. FU in 6m w labs Assessment & Plan (03/26/2023 11:55 AM EDT): Bp is at goal Controlled. Compliant w/meds Continue lisinopril same dose Counseled re low salt diet/increase moderate physical activity. Check home BP BIW and prn CP/CLOUD/PUENTES Received flu IZ today Assessment & Plan (09/26/2022 11:31 AM EDT): Uncontrolled today, could be related to acute asthma exacerbation treat asthma, counseled to quit smoking Continue lisinopril 10mg Counseled re low salt diet/increase moderate physical activity. Check home BP BIW and prn CP/CLOUD/PUENTES Non smoking patient. FU with me in 3 months with labs. Contact with and (suspected) exposure to covid-1 9 04/15/2022 COVID-19 04/15/2022 Mixed hyperlipidemia 04/15/2022 Assessment & Plan (05/27/2024 8:25 PM EST): Advised to take crestor daily at bedtime FU lipids in 6 mo Assessment & Plan (10/23/2023 10:14 AM EDT): He's off statin.Check lipids We discussed re rx options. Recommended moderate amount of exercise and increase consumption of fruit, vegetables, fish and high fiber foods. Should decrease consumption of highly saturated fats or trans fats. Assessment & Plan (03/26/2023 11:56 AM EDT): Cont Crestor for now, check lipids profile prior to next maggie Counseled to quit smoking Assessment & Plan (09/26/2022 11:31 AM EDT): Noncompliant with Crestor. Counseld to take medication qhs and check labs in 3 months We discussed re rx options. She wants to be more strict with life style modifications. Recommended moderate amount of exercise and increased consumption of fruit, vegetables, fish and high fiber foods. We discussed about avoiding consumption of highly saturated fats or trans fats. FU lipids in 6m Primary osteoarthritis of right knee 04/15/2022 Shoulder pain 04/15/2022 Assessment & Plan (08/02/2024 1:56 PM EDT): Secondary to OA, will refer to PT after next visit. Continue taking Tylenol prn. Uncomplicated varicose veins 04/15/2022 Assessment & Plan (03/26/2023 11:57 AM EDT): Cont to use compression stockings, counseled to quit smoking Fu 2 m, if leg pain persists I may refer him to vascular surgery Mild persistent asthma without complication 03/26 Vesical tenesmus 04/15/2022 Vitamin D deficiency 04/15/2022 Assessment & Plan (03/26/2023 11:59 AM EDT): Check vit-d Levels, he's off Vit-D Counseled outdoor exercise about 50 min per day Screening for colorectal cancer 04/15/2022 Benign localized prostatic h yperplasia with lower urinary tract symptoms (LUTS) 03/16/2018 Assessment & Plan (10/23/2023 3:24 PM EDT): Mild sxs, no obstruction. Start Flomax, will fu next appt and refer again to urology if needed. Check PSA Depressive disorder 02/05/2012 Chronic obstructive lung disease 11/11/2011 Overview (04/01/2024): PFTs at [facility] on 07/2021 Assessment & Plan (08/02/2024 1:55 PM EDT): Doing well on Albuterol prn only. He agreed to have Influenza immunization today. Assessment & Plan (05/27/2024 8:21 PM EST): Most likely viral URI triggering COPD Advised to use albuterol 4x/, no need of steroids at this time Advised to quit smoking Opioid dependence 11/11/2011 Assessment & Plan (08/02/2024 10:57 AM EDT): Doing well and follow ups with [facility] program, last time seen was last month. Doing well on Suboxone. Assessment & Plan (05/10/2024 5:30 PM EST): - Long-term maintenance stage in his recovery / in remission. - Continue current treatment plan. Assessment & Plan (09/30/2023 11:00 AM EDT): - Long-term maintenance stage in his recovery / in remission. - Continue current treatment plan. Assessment & Plan (08/05/2023 4:59 AM EDT): Long-term maintenance stage in his recovery / in remission. Continue current treatment plan. Suboxone 12/3 mg daily Assessment & Plan (09/03/2022 10:43 AM EDT): ?? Long-term maintenance stage in his recovery / in remission. ?? Continue current treatment plan. ?? Suboxone 12/3 mg daily Will ask pt's primary care provider if pt is due for a lab (our screening labs can be included). Assessment & Plan (07/09/2022 10:35 AM EST): ?? Long-term maintenance stage in his recovery / in remission. ?? Continue current treatment plan. ?? Suboxone 12/3 mg daily Assessment & Plan (05/14/2022 5:10 AM EST): ?? Long-term maintenance stage in his recovery / in remission. ?? Continue current treatment plan. ?? Suboxone 12/3 mg daily Tobacco dependence syndrome 11/11/2011 Assessment & Plan (10/23/2023 3:25 PM EDT): Smokes up to 1/2 ppd, advised to use nicotine gum Assessment & Plan (08/05/2023 5:00 AM EDT): PCP counseled to quit smoking, he has nicotine gum PCP counseled to come to acupuncture clinic Assessment & Plan (09/26/2022 11:32 AM EDT): counseled to quit smoking, he has nicotine gum counseled to come to acupuncture clinic FU in 3 months Encounters Date Type Department Care Team Description 08/04/2024 Orders Only [address] [address] Rosario Conrad MD Mixed hyperlipidemia (Primary Dx) 08/04/2024 Orders Only [address] [address] Shawnee Odom MD 08/02/2024 10:30 AM EDT Office Visit [address] [address] Rosario Conrad MD Benign hypertension (Primary Dx); Lower urinary tract symptoms (LUTS); Chronic obstructive pulmonary disease, unspecified COPD type (CMS/HCC); Chronic right shoulder pain; Medial epicondylitis of elbow, unspecified laterality; Uncomplicated opioid dependence (CMS/HCC); OM (onychomycosis); Class 1 obesity due to excess calories with serious comorbidity and body mass index (BMI) of 31.0 to 31.9 in adult; Dietary counseling; Exercise counseling; Encounter for immunization 08/02/2024 Travel 07/26/2024 Patient Outreach [address] [address] Rosario Conrad MD Pre-visit Planning (SDOH screening negative and tobacco screening negative) 07/06/2024 9:00 AM EST Clinical Support [address] [address] Julio Cesar Kemp, RN Uncomplicated opioid dependence (CMS/HCC) (Primary Dx) 07/06/2024 Travel 06/29/[address] [address] Julio Cesar Kemp RN Opioid dependence in remission ([facility]) 06/27/2024 Orders Only [facility] [address] [place] [address] Julio Cesar Kemp RN Uncomplicated opioid dependence ([facility]/HCC) 05/27/2024 Telephone [facility] [address] [place] [address] Rosario Conrad MD July recall 05/11/2024 9:00 AM EST Office Visit [facility] [address] [place] [address] Shawnee Odom MD Uncomplicated opioid dependence ([facility]) (Primary Dx) 05/11/2024 Refill [facility] [address] [place] [address] Rosario Conrad MD Primary hypertension 05/11/2024 Travel from Last 3 Months Immunizations Name Administration Dates Next Due Hep A, Adult 05/13/2006 Hep B, adult 05/13/2006 Influenza injectable quadriv alent IIV4 with preservative 04/30/2015 Influenza injectable quadriv alent preservative free 03/26/2023,05/22/2020 Influenza, IIV3, injectable 02/20/2021, 4,03/24/2011 Influenza, Split (incl. sera fied surface antigen) 03/30/2013 Influenza, seasonal, injecta ble, preservative free 08/02/2024 Moderna Covid-19 Vaccine 12+ 10/03/2021,10/25/19 21,09/25/2020 Pneumococcal Conjugate PCV 20 10/23/2023 Pneumococcal Polysaccharide PPSV23 05/12/2006 TD (adult), 2 Lf tetanus tox oid, preservative free, adsorbed 12/25/2006 Tdap 10/23/2023,08/30/2013 Social History Tobacco Use Types Packs/Day Years [...] Frequency of Binge Drinking Not on file 050 12/2023 Score 0 09/30/2023 Depression Answer Date [...] Orientation Straight 03/24/2022 10 :16 AM EDT Last Filed Vital Signs Vital Sign Reading [...] Mass Index 31.35 08/02/2024 10:31 AM EDT Plan of Treatment Upcoming Encounters Date Type Department Care Team (Late st Contact Info) Description 08/31/2024 9:00 AM EDT Clinical Support [facility] [address] [place] [address] Julio Cesar Kemp, RN [address] [place] [address] Health Maintenance Due Date Last Done Comments CT Colonography 1967 FIT DNA/Cologuard 1967 FIT 1967 FOBT 1967 Sigmoidoscopy 1967 Hepatitis B Vaccines (2 of 3 - 19+ 3-dose series) 06/10/2006 05/13/2006 Zoster Vaccines (1 of 2) 2017 Dental Prophylaxis 11/30/2019 05/31/2019, 0 11/19/2018, 05/03/2012, Additional history exists COVID-19 Vaccine ( season) 2024 10/03/2021, 10/24/2020, 09/25/2020 Dental Oral Exam 07/23/2024 01/22/2024, , 05/31/2019, Additional history exists Alcohol/Substance Use Screening 09/29/2024 09/30/2023 Depression Screening 09/29/2024 09/30/2023, 09/30/19 24 SDOH Screening 09/29/2024 09/30/2023 Diabetes: Hemoglobin A1C 11/01/2024 11/02/2023, 05/25 Dental X-Ray: Bitewings 01/22/2025 01/22/20 24, 08/14/2023, 03/07/2022, Additional history exists Tobacco Screening 08/02/2025 08/02/2024 Colonoscopy 09/11/2026 09/11/2021 Colorectal Cancer Screening 09/11/2026 Dental X-Ray: Full Mouth 01/22/2027 024, 03/07/2022, 08/24/2017 Lipid Panel 08/04/2029 08/04/2024, 10/23, 04/02/2023, Additional history exists DTaP/Tdap/Td Vaccines (3 - Td or Tdap) 10/22/2033 10/23/2023, 08/30/2013, 12/25/2006 RSV Patients and Patients Aged 60 years or older (1 - 1-dose 75+ series) 2042 Hepatitis A Vaccines Aged Out 05/13/2006 No long er eligible based on patient's age to complete this topic HIV Screening Completed 01/05/2023, 06/12/2021 Hepatitis C Screening Completed 01/05/2023 , 01/05/2023, 06/12/2021 Pneumococcal Vaccine: 50+ Years Completed 10/23/2023, 05/12/2006 Influenza Vaccine Completed 08/02/2024, , 02/20/2021, Additional history exists HIB Vaccines Aged Out No longer eligi ble based on patient's age to complete this topic HPV Vaccines Aged Out No longer eligi ble based on patient's age to complete this topic IPV Vaccines Aged Out No longer eligi ble based on patient's age to complete this topic Meningococcal Vaccine Aged Out No daniela anirudh eligible based on patient's age to complete this topic RSV under 20 months Aged Out No longe r eligible based on patient's age to complete this topic Rotavirus Vaccines Aged Out No longer eligible based on patient's age to complete this topic Procedures Procedure Name Priority Date/Time Associated Diagnosis Comments HEPATIC FUNCTION PANEL Routine 08/04/2024 11:31 AM EDT BASIC METABOLIC PANEL Routine 08/04/2024 11:31 AM EDT Benign hypertension LIPID PANEL WITH REFLEX TO DIRECT LDL Routine 08/04/2024 11:31 AM EDT Benign hypertension POCT FRANKLYN-14 URINE DRUG SCREEN Routine 07/06/2024 10:08 AM EST Uncomplicated opioid dependence (CMS/HCC) POCT FRANKLYN-14 URINE DRUG SCREEN Routine 05/11/2024 10:39 AM EST Uncomplicated opioid dependence (CMS/HCC) INTRAORAL - COMPLETE SERIES OF RADIOGRAPHIC IMAGES Routine 01/22/2024 11:00 AM EDT PERIODIC ORAL EVALUATION - ESTABLISHED PATIENT Routine 01/22/2024 11:00 AM EDT HEMOGLOBIN A1C Routine 11/02/2023 10:19 AM EDT Benign hypertension HEPATITIS C ANTIBODY REFLEX Routine 01/05/2023 11:39 AM EDT HIV ANTIBODY/ANTIGEN ([place] DPH) Routine 01/05/2023 11:39 AM EDT HM COLONOSCOPY Routine 09/11/2021 8:25 AM EDT PROPHYLAXIS - ADULT Routine 05/31/2019 1 2:00 AM EST from Last 3 Months or Most Recently Relevant to Health Maintenance Results * (ABNORMAL) Lipid Panel with Reflex to Direct LDL (08/04/2024 11:31 AM EDT) Triglycerides 242(H) <150 mg/dL [facility] Comment:Desirable Triglyceri de: less than 150 mg/dLBorderline High Triglyceride 150-199 mg/dLHigh Triglyceride: 200-499 mg/dLVery High Triglyceride: greater than or equal to 5OO mg/dL Cholesterol 219(H) <200 mg/dL [facility] Comment:Desirable Cholestero l: less than 200 mg/dLBorderline High Cholesterol: 200-239 mg/dLHigh Cholesterol: greater than 239 mg/dL LDL Cholesterol Calculated 133(H) <100 mg/dL [facility] Comment:Desirable LDL: less than 100 mg/dLNear Optimal/Above Optimal LDL: 110- 129 mg/dLBorderline High LDL: 130-159 mg/dLHigh LDL: 160-189 mg/dLVery High LDL: greater than or equal to 190 mg/dL HDL Cholesterol 38(L) >40 mg/dL [facility] Comment:Desirable HDL: great er than 40 mg/dL Note: This HDL assay may give artificially low results in patients with liver disease. Blood 08/04/2024 11:3 1 AM EDT 08/04/2024 1:35 PM EDT us Rosario Conrad MD LAB BLOOD ORDERABLES Fin al Result Performing Organization Address City/[facility]/ZIP Co de Phone Number [facility] [address] [place] [phone] * (ABNORMAL) Hepatic Function Panel (08/04/2024 11:31 AM EDT) Bilirubin, Total 0.6 0.0 - 1.0 mg/dL [facility] Bilirubin, Direct 0.2 0.0 - 0.5 mg/dL [facility] Aspartate Amino Transferase 69(H) 5 - 37 U/L [facility] Alanine Aminotransferase 32 0 - 40 U/L [facility] Total Protein 7.4 6.5 - 8.0 g/dL [facility] Albumin Level 4.0 3.5 - 5.0 g/dL [facility] Alkaline Phosphatase 81 39 - 117 U/L [facility] 08/04/2024 11:3 1 AM EDT 08/04/2024 1:35 PM EDT us Shawnee Odom MD LAB BLOOD ORDERABLES Final Resul t Performing Organization Address [facility] Co de Phone Number [facility] [address] [place] [phone] * (ABNORMAL) Basic Metabolic Panel (08/04/2024 11:31 AM EDT) Sodium 138 135 - 145 mmol/L [facility] Potassium 4.2 3.3 - 5.1 mmol/L [facility] Chloride 107 96 - 108 mmol/L [facility] Carbon Dioxide 24 22 - 29 mmol/L [facility] Anion Gap 11(L) 12 - 20 [facility] Urea Nitrogen (BUN) 17(H) 9 - 16 mg/dL [facility] Creatinine, Serum 0.85 0.5 - 1.4 mg/dL [facility] Estimated Glomerular Filt Rate >60 [facility] Comment:Chronic Kidney Disea se: Estimated GFR < 60 mL/min/[id number] Kidney Disease: Estimated GFR < 15 mL/min/1.73m2 Glucose 119(H) 60 - 115 mg/dL [facility] Calcium 8.3(L) 8.4 - 10.2 mg/dL [facility] Blood Venous blood specimen / Unknown 08/04/2024 11:31 AM EDT 08/04/2024 1:35 PM EDT Rosario Conrad MD LAB BLOOD ORDERABLES Fin al Result [facility] [address] [place] [phone] * POCT FRANKLYN-14 Urine Drug Screen (07/06/2024 10:08 AM EST) Only the most recent of2 resultswithin the time period is included. THC Negative Cocaine Screen, Urine Negative Opiate Screen, Urine Negative Methamphetamine Screen Urine Negative Amphetamine Screen, Urine Negative Benzodiazepines Screen, Urine Negative Barbiturate Screen, Urine Negative Methadone Screen, Urine Negative Buprenophine Screen, Urine Positive TCA, Urine Negative MDMA Urine Negative ng/mL Oxycodone Screen, Urine Negative Phencyclidine (PCP), Urine Negative Propoxyphene, Urine Negative Fentanyl, Urine Negative Urine Urine specimen obtained by clean catch procedure / Unknown 07/06/2024 10:08 AM EST us Shawnee Odom MD POINT OF CARE TEST ENTER/EDIT OR DERABLES Final Result * Hemoglobin A1c (11/02/2023 10:19 AM EDT) Hemoglobin A1c 5.8 <6.0 % [facility] Comment:Hemoglobin A1C Refer ence Range Adults: 4.8 - 6.0 % Non diabetic: < 6.0 % Goal: < 7.0 %Additional Action Suggested: > 8.0 %Note: Hemoglobin A1c results are invalid for patients with abnormal amounts of HbF. Blood transfusions may impact the HbA1c concentration in the patient sample. Estimated Average Glucose 120 mg/dL [facility] Comment:eAG = Estimated ave rage glucose which is %A1C expressed asaverage glucose, using the formula of the [id number] Glucose study (ADAG), Diabetes Care, Vol.31,#8,Dec. 2007 Blood Venous blood specimen / Unknown 11/02/2023 10:19 AM EDT 11/02/2023 11:41 AM EDT us Rosario Conrad MD LAB BLOOD ORDERABLES Fin al Result Performing Organization Address [facility] Co de Phone Number [facility] [address] [place] [address] [phone] * (ABNORMAL) Hepatitis C Antibody Reflex (01/05/2023 11:39 AM EDT) Hepatitis C Antibody Reactive( A) Nonreactive [facility] Comment:Presumptive evidence of antibodies to HCV. 01/05/2023 11:3 9 AM EDT 01/05/2023 1:15 PM EDT us Magdaleno Mendez MD LAB BLOOD ORDERABLES Final Res ult Performing Organization Address [facility] Co de Phone Number [facility] [address] [place] [address] [phone] * HIV Ab/Ag ([facility]) (01/05/2023 11:39 AM EDT) HIV AB/AG Nonreactive Nonreactive [facility] Comment:HIV-1 p24 Ag and/or HIV-1/HIV-2 Ab not detected.A test result that is nonreactive does not exclude thepossibility of exposure to or infection with HIV-1 and/orHIV-2. Nonreactive results in this assay for individualswith prior exposure to HIV-1 and/or HIV-2 may be due toantigen and antibody levels that are below the limit ofdetection of this assay.[employer] HIV Ag/Ab Combo assay result andsupplemental assay results should be interpreted inconjunction with the patient's clinical presentation,history and other laboratory results. If the results areinconsistent with clinical evidence, additional testing issuggested to confirm the result. 01/05/2023 11:3 9 AM EDT 01/05/2023 1:15 PM EDT Magdaleno Mendez MD LAB BLOOD ORDERABLES Final Res ult [facility] [address] [place] [phone] * Hm Colonoscopy (09/11/2021 8:25 AM EDT) Historical Provider HEALTH MAINTENANCE Final Result from Last 3 Months or Most Recently Relevant to Health Maintenance Insurance Flare Code DENTAL - HSN PARTIAL (MEDICAID) Care Teams Business Excellence Leader Relationship Specialty Start Date End Date Rosario Conrad MD [address] [place] [phone] PCP - General Family Medicine 01/12/17
--- OUTSIDE RECORDS SUMMARY | 2024-08-04 14:49 | XMS_ITS | Encounter Summary ---
Author Organization [employer] [facility] Address [address] [place] [address] 7 [place] [address] Care Team Providers Care Bundle Person Name Role Phone Rosario Conrad MD Primary Care Provider + Encounter Details Date Type Department Care Team (Late Contact Info) Description 11/12/2022 Abstract [facility] [address] [place] [address] Rosario Conrad MD [address] [place] [address] Social History Tobacco Use Types Packs/Day Years Used Date Smoking Tobacco: Every Day Cigarettes Smokeless Tobacco: Never Alcohol Use Standard Drinks/Week Comments Yes 0 (1 standard drink = 0.6 oz pur e alcohol) rare Depression Answer Date Recorded Patient Health Questionnaire-2 Score 0 09/26/2022 Sex and Gender Information Value Date Recorded Sex Assigned at Male 03/24/2022 10:16 AM EDT Legal Sex Male 10:16 AM EDT Gender Identity Male 03/24/2022 10:16 AM EDT Sexual Orientation Straight 03/24/2022 10 :16 AM EDT COVID-19 Exposure Response Date Recorded In the last 10 days, have yo u been in contact with someone who was confirmed or suspected to have Coronavirus/COVID-19? No / Unsure 10/29/2022 10:01 AM EDT documented as of this encounter Plan of Treatment Upcoming Encounters Date Type Department Care Team (Late Contact Info) Description 08/31/2024 9:00 AM EDT Clinical Support [facility] [address] [place] [address] Julio Cesar Kemp, RN [address] [place] [address] documented as of this encounter Visit Diagnoses Not on filedocumented in this encounter Care Teams Bundle Person Relationship Specialty Start Date End Date Rosario Conrad MD [address] [place] [address] PCP - General Family Medicine 01/12/17 documented as of this encounter
--- OUTSIDE RECORDS SUMMARY | 2024-08-04 14:49 | XMS_ITS | Encounter Summary ---
Author Organization [employer] Address [address] [place] [address] 7 [place] [address] Care Team Providers Care Boat Ride Operator Name Role Phone Rosario Conrad MD Primary Care Provider + Reason for Visit * Reason Comments OBAT Encounter Details Date Type Department Care Team (Latest Contact Info) Description 07/06/2024 9:00 AM EST Clinical Support [facility] [address] [place] [address] Julio Cesar Kemp, RN [address] [place] [address] Uncomplicated opioid dependence (CMS/HCC) (Primary Dx) Social History Tobacco Use Types Packs/Day Years [...] as of this encounter Progress Notes * Julio Cesar Kemp RN - 07/06/2024 9:00 AM EST Rehan Ye is a 58 y.o. male who presents for OBAT RV. Patient has been in the program for 17 years and 6 months, starting date 01/06/07. Pt doing well on current Suboxone dose of 12/3 mg on an 8-week schedule. Pt reports taking medication as prescribed, no cravings or adverse effects. Patient is not enrolled in behavioral health services, case closed, patient completed sessions. LFTs done 01/05/23. Ordered. PCP last seen 04/01/24 Dental care: Regularly, [facility] , last seen on 05/03/24 Smoking cessation discussion 05/11/24. Smoking 1/2 ppd. PCP has been helping him reduce tobacco consumption. TRINY GALLAGHER reviewed by provider. LAST VISIT 05/11/24 Utox: pos Rehan is working on smoking cessation. Down to 1/2 ppd. He states his visit with PCP was good. Hisnails are slowly improving. When given a next appointment, he states his birthday is in [birth year]. He is going to celebrate 59th birthday. Today 07/06/24 Utox: pos bup only Rehan seen today for follow up for opioid use disorder. Reports doing well, no concerns with Suboxone. Still smoking about 1/2 ppd, which is down from a pack per day earlier. States he doesn't like using NRT, wants to quit on his own. Celebrating his 59th birthday on Thursday. Reports muscle and joint aches, especially at night and in the morning. Seeing his PCP 08/02/24 and made aware of [facility] for any concerns. Reminded to do program labs. Plan: Suboxone dosing schedule of 16/4 mg daily, management of side effects, risk reduction/sobriety, andbehavioral health attendance reviewed. Appointment for 8 weeks given. Patient expressed understanding and agreement with continuing plan of care. This information has been disclosed to you from records protected by federal confidentiality rules (42 CFR Part 2). The federal rules prohibit you from making any further disclosure of information inthis record that identifies a patient as having or having had a substance use disorder either directly, by reference to publicly available information, or through verification of such identification by another person unless further disclosure is expressly permitted by the written consent of the individual whose information is being disclosed or as otherwise permitted by (see2.3.1). The federal rules restrict any use of the information to investigate or prosecute with regard to a crime any patient with a substance use disorder, except as provided at 2.12??(5) and 2.65. documented in this encounter Plan of Treatment Upcoming Encounters Date Type Department Care Team (Late st Contact Info) Description 08/31/2024 9:00 AM EDT Clinical Support [facility] [address] [place] [address] Julio Cesar Kemp RN [address] [place] [address] documented as of this encounter Procedures Procedure Name Priority Date/Time Associated Diagnosis Comments POCT FRANKLYN-14 URINE DRUG SCREEN Routine 07/06/2024 10:08 AM EST Uncomplicated opioid dependence (CMS/HCC) documented in this encounter Results * POCT FRANKLYN-14 Urine Drug Screen (07/06/2024 10:08 AM EST) THC Negative Cocaine Screen, Urine Negative Opiate [...] procedure / Unknown 07/06/2024 10:08 AM EST Shawnee Odom MD POINT OF CARE TEST ENTER/EDIT OR DERABLES Final Result documented in this encounter Visit Diagnoses Diagnosis Uncomplicated opioid dependence (CMS/HCC)- Primary documented in this encounter Additional Health Concerns Assessment Noted Time PHQ-9 Depression Total Score: 0 09/30/19 24 10:11 AM EDT documented as of this encounter Care Teams Boat Ride Operator Relationship Specialty Start Date End Date Rosario Conrad MD [address] [place] [address] PCP - General Family Medicine 01/12/17 documented as of this encounter
--- OUTSIDE RECORDS SUMMARY | 2024-08-04 14:49 | XMS_ITS | Encounter Summary ---
Author Organization [employer] Address [address] [place] [address] 7t [place] [address] Care Team Providers Care Dope Sprayer Name Role Phone Rosario Conrad MD Primary Care Provider + Encounter Details Date Type Department Care Team ([facility] st Contact Info) Description 08/04/2024 Orders Only [facility] [address] [place], [place] [phone] Shawnee Odom MD [address] [place] [address] Social History Tobacco Use Types Packs/Day Years [...] Description 08/31/2024 9:00 AM EDT Clinical Support [facility] [address] [place] [address] Julio Cesar Kemp, RN [address] [place] [address] documented as of this encounter Procedures Procedure Name Priority Date/Time Associated Diagnosis Comments HEPATIC FUNCTION PANEL Routine 08/04/2024 11:31 AM EDT documented in this encounter Results * (ABNORMAL) Hepatic Function Panel (08/04/2024 11:31 AM EDT) Bilirubin, Total 0.6 0.0 - 1.0 mg/dL [facility] Bilirubin, Direct 0.2 0.0 - 0.5 mg/dL [facility] Aspartate Amino Transferase 69(H) 5 - 37 U/L [facility] Alanine Aminotransferase 32 0 - 40 U/L [facility] Total Protein 7.4 6.5 - 8.0 g/dL [facility] Albumin Level 4.0 3.5 - 5.0 g/dL [facility] Alkaline Phosphatase 81 39 - 117 U/L [facility] 08/04/2024 11:3 1 AM EDT 08/04/2024 1:35 PM EDT us Shawnee Odom MD LAB BLOOD ORDERABLES Final Resul t [facility] [address] [place] [address] [phone] documented in this encounter Visit Diagnoses Not on filedocumented in this encounter Additional Health Concerns Assessment Noted Time PHQ-9 Depression Total Score: 0 09/30/19 24 10:11 AM EDT documented as of this encounter Care Teams Dope Sprayer Relationship Specialty Start Date End Date Rosario Conrad MD [address] [place] [address] PCP - General Family Medicine 01/12/17 documented as of this encounter
--- OUTSIDE RECORDS SUMMARY | 2024-08-04 14:49 | XMS_ITS | Encounter Summary ---
Author Organization [employer] [facility] Address [address] [place] [address] 7 [place] [address] Care Team Providers Care Shear Tender Name Role Phone Rosario Conrad MD Primary Care Provider + Reason for Visit * Reason Comments Med Refill Encounter Details Date Type Department Care Team (Late Contact Info) Description 02/11/2023 Refill [facility] [address] [place] [address] Shawnee Odom MD [address] [place] [phone] Opioid dependence in remission (CMS/HCC) Social History [...] Description 08/31/2024 9:00 AM EDT Clinical Support [facility] [address] [place] [address] Julio Cesar Kemp RN [address] [place] [address] documented as of this encounter Visit Diagnoses Diagnosis Opioid dependence in remission (CMS/HCC) Opioid type dependence, in remission documented in this encounter Care Teams Shear Tender Relationship Specialty Start Date End Date Rosario Conrad MD [address] [place] [address] PCP - General Family Medicine 01/12/17 documented as of this encounter
--- OUTSIDE RECORDS SUMMARY | 2024-08-04 14:49 | XMS_ITS | Encounter Summary ---
Author Organization [email or web address] Address [address] [facility] 7t [place] [address] Care Team Providers Care Cryptologic Technician Name Role Phone Rosario Conrad MD Primary Care Provider + Encounter Details Date Type Department Care Team ([facility] st Contact Info) Description 08/04/2024 Orders Only [facility] [address] [place] [address] Rosario Conrad MD [address] [place] [address] Mixed hyperlipidemia (Primary Dx) Social History Tobacco Use Types [...] 9:00 AM EDT Clinical Support [facility] [address] [place] [address] Julio Cesar Kemp RN [address] [place] [address] Scheduled Orders Name Type Priority Associated Diagnoses Orde r Schedule Hepatic Function Panel Lab Routine Mixed hyperlipidemia Expected: 09/04/2024 (Approximate), Expires: 08/04/2025 documented as of this encounter Visit Diagnoses Diagnosis Mixed hyperlipidemia- Primary documented in this encounter Additional Health Concerns Assessment Noted Time PHQ-9 Depression Total Score: 0 09/30/19 24 10:11 AM EDT documented as of this encounter Care Teams Cryptologic Technician Relationship Specialty Start Date End Date Rosario Conrad MD [address] [place] [address] PCP - General Family Medicine 01/12/17 documented as of this encounter
[2024-08-05 03:54] LABS: Syphilis Screen Nonreactive (Nonreactive)
[2024-08-05 04:23] LABS: HBS Num1 34.07 mIU/mL (0-7.99); HBc Num1 0.05 S/CO (0.00-0.79); HBsAGNum1 0.27 S/CO (0.00-0.99); HIV AB/AG Nonreactive (Nonreactive); HIV Num 1 0.07 S/CO (0.00-0.99); Hepatitis B Core Antibody Nonreactive (Nonreactive); Hepatitis B Surface Antigen Negative (Negative); ~HepC Num1 10.89 S/CO (0.00-0.79); ~Hepatitis B Surface Antibody REACTIVE (Nonreactive); ~Hepatitis C Antibody Reactive (Nonreactive)
[2024-08-07 07:37] LABS: HCV Log PCR <1.18 NOT DETECTED Log IU/mL (NOT DETECTED); HepC Viral Load <15 NOT DETECTED IU/mL (NOT DETECTED)
[2024-08-10 08:56] LABS: Hepatitis A Antibody IgG REACTIVE (Nonreactive); ~Hepatitis A Antibody IgG 10.63 S/CO (0.00-0.99)
== END 2024-08-04 11:28 | disposition home or self-care (01) ==
LOC: HO.HHCL 11:27
PROVIDERS: Family Medicine; Visit Provider Internal Medicine
DX: I10 Essential (primary) hypertension (principal); F11.20 Opioid dependence, uncomplicated; Z11.59 Encounter for screening for other viral diseases
CPT/HCPCS: 36415; 80048; 80061; 80076; 86704; 86706; 86708; 86780; 86803; 87340; 87389; 87522

== ENCOUNTER 2024-09-16 11:00 | Outpatient (RCR) | payer OTHER, SELFPAY ==
--- NOTE | 2024-08-17 11:46 | MHC.OT.EP ---
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 He has been referred to OT for further assessment and management. On assessment today, he has B/L elbow pain, right somewhat worse than left, and pain localized primarily to lateral and medial epicondyles, but moreso laterally. He has tight range w/ cervical and shoulder movement and scapular tightness. No loss of sensation, strength or coordination. We have initiated therapy w/ education of joint protection and given counter force braces for B/L arms to use w/ heavier work. I anticipate he will do well w/ course of OT for progression of range, retraining strengthening, joint protection and activity modification. Frequency and Duration: The patient will be seen 1x/wk for 4 weeks Short Term Goals: Ind w/ Juarez stretches Priogress to resisted strengthening program Good follow through w/ CFB wear Good follow through w/ joint protection technqiues System Software Programmer Goals: Pain free resting in both elbows Right gross grasp >70lb w/ low pain Ind w/ progression of strengthening Pt to demo ease w/ shoulder, cervical and scapula movements Treatment Plan: Therapeutic Exercise Therapeutic Activity Home Exercise Program Splinting Patient Education Edema Control ADL Training Ultrasound MHP Cold Packs Soft Tissue Mobilization Kinesiotaping Limited to 1x/wk due to schedule and transportation Electronically Signed By: LEYLA Shanks/L CHT Please Sign and return to therapist. Thank you once again for your referral.
--- NOTE | 2024-09-21 09:50 | MHC.OT.DC ---
[address] [phone] F: [phone] Occupational Therapy Discharge Note Patient Name: Reahn Ye Provider: Dr Rosario Conrad Diagnosis: Medial Epicondylitis Date of Evaluation: 08/17/24 Treatments to Date: 4 Discharge Status: Achieved Goals Improved Function Independent with HEP Discharge Summary: Rehan has completed brief course of OT for education for elbow pain due to overuse and muscle imbalance. We have implemented stretching and strengthening routine, but he has had minimal carry over w/ home program and has not consistently been wearing counter-force brace with work tasks. No further therapy services needed at this time. Electronically Signed By: LEYLA Shanks/Lucinda CHT Reviewed/agree with student documentation: Therapist: Please Sign and return to therapist, thank you for your referral.
== END 2024-09-21 09:51 | disposition home or self-care (01) ==
LOC: HO.OT 11:00
PROVIDERS: PCP Internal Medicine; Visit Provider Internal Medicine
DX: M77.00 Medial epicondylitis, unspecified elbow (principal)
CPT/HCPCS: 97035; 97110; 97140; 97165

== ENCOUNTER 2024-10-07 11:04 | Outpatient (AMB) | payer OTHER, SELFPAY ==
--- NOTE | 2024-10-07 11:27 | MHC.OFFVIS ---
Intake Visit Reasons: BPH/nocturia Intake Note: Patient is present for BPH/NOCTURIA Urology Medication:NONE Antibiotic Allergy:NONE Blood Thinner:NONE TODAY'S PVR: 289ML'S Hydroelectric Station Operator Chief Required: No Allergies No Known Allergies Allergy (Verified 10/07/24 11:29) HPI Comments Details: Rehan is a pleasant Burmese-speaking male. He is a patient of Dr. Conrad. Seen for following urologic conditions - lower urinary tract symptoms Has not been seen since in office for over 3 years Would benefit from baseline hormonal evaluation High normal HbA1c Long-term Suboxone use High intensity statin therapy High PVR today with difficulty emptying Has not been taking terazosin. He will restart Follow-up uroflow with cystoscopy Baseline hormone testing Lower urinary tract symptoms Primary issue hesitancy and incomplete emptying Double emptying Nocturia x3 Current medications include terazosin Concurrent conditions include hypertension, dyslipidemia, opiate use PSA - 03/11 0.5 PFSH Medical History Back pain Chronic obstructive pulmonary disease (COPD) Colon cancer screening Depression Hand pain Hx of hepatitis C Opioid dependence Family History Maternal Grandmother Cancer Social History Household Members: Family Alcohol intake: current Alcohol intake frequency: holidays/special occasions only Tobacco use type: Cigar Cigarettes Per Day: 10 Review of Systems Const Denies chills and Denies fever(s) Card Reports no additional complaints and Denies syncope Resp Denies cough GI Denies abdominal pain and Denies heartburn Reports as per HPI and Denies change in libido Neuro Denies syncope Psych Denies change in libido Endo Denies change in libido Physical Exam Const General: cooperative, healthy appearing, comfortable and no acute distress Orientation/consciousness: patient oriented x3 HEENT Face and sinus: Yes normal facial exam Mouth: moist mucous membranes Neck Neck: Yes normal visual inspection, Yes full ROM and Yes trachea midline Chest Chest palpation & inspection: normal inspection of the chest Resp Effort & Inspection: normal respiratory effort, able to speak in complete sentences and no respiratory distress GI Inspection: Yes normal to inspection Back/Spine/Pelvis Cervical Spine: normal cervical lordosis Thoracic/Lumbar Spine: thoracic and lumbar spine normal to inspection Skin General skin exam: no rashes or lesions noted Neuro General: patient oriented x3, gait normal, tone normal and moves all extremities Extrem General: Yes normal to inspection and Yes capillary refill normal Office Procedures Post Void Residual Post Residual Void Post Void Residual (PVR): [id number] Void Residual by ultrasound Assessment & Plan Assessment & Plan (1) Low libido: Code(s): R68.82 - Decreased libido Category: Medical (2) Nocturia more than twice per night: Code(s): R35.1 - Nocturia Category: Medical (3) Bladder outlet obstruction: Code(s): N32.0 - Bladder-neck obstruction Category: Medical Plan Three-month follow-up uroflow check cysto Orders: Orders Lutenizing Hormone Today R68.82 - Decreased libido Testosterone, Free/Total Today R68.82 - Decreased libido Patient Instructions: This note is constructed using voice recognition software. While every effort has been made to ensure accuracy press leader errors may have been included. Imaging studies, laboratory and physical exam results were discussed and reviewed in detail. No major barriers to patient understanding were identified. An opportunity to ask questions regarding the treatment plan was provided. All questions were answered. The patient expressed understanding and agreement with the above treatment plan. The patient is aware they should contact our office by phone for worsening of their current condition or the appearance of new urologic symptoms. Compliance is encouraged with any medications and followup testing that is ordered. It is a privilege to participate in the urologic care of your patient. If you have any questions or concerns regarding treatment for the above conditions, or other urologic issues, please do not hesitate to contact me. The office telephone contact is [phone]. Sincerely, Dr Harrison Ray MD, VERONICA [facility] - Urology Compassionate Specialist Care for the Genitourinary System Coding Level of Care Code New Pt Level 4 (99405) Diagnoses Low libido R68.82 Nocturia more than twice per night R35.1 Bladder outlet obstruction N32.0 CPT Codes Post Residual Void - PVR CPT Code: 39652-Xjag Void Residual by ultrasound ([id number])
--- OUTSIDE RECORDS SUMMARY | 2024-10-07 11:33 | XMS_ITS | Encounter Summary ---
Author Organization [employer] Address [address] [facility] 7t [place] [address] Care Team Providers Care Pinsetter Mechanic Helper Name Role Phone Rosario Conrad MD Primary Care Provider + Reason for Visit * Reason Comments Med Refill Encounter Details Date Type Department Care Team (Late st Contact Info) Description 07/29/2023 Refill [facility] [address] [place], [place] [phone] Shawnee Odom MD [address] [place], [place] [phone] Opioid dependence in remission (CMS/HCC) Social History [...] Care Team (Late st Contact Info) Description 10/26/2024 9:00 AM EDT Clinical Support [facility] [address] [place] [address] Julio Cesar Kemp, DEVANG [address] [place] [address] 12/15/2024 11:45 AM EDT Office Visit [facility] [address] [place] [address] Rosario Conrad MD [address] [place] [address] documented as of this encounter Visit Diagnoses Diagnosis Opioid dependence in remission (CMS/HCC) Opioid type dependence, in remission documented in this encounter Care Teams Pinsetter Mechanic Helper Relationship Specialty Start Date End Date Rosario Conrad MD [address] [place] [address] PCP - General Family Medicine 01/12/17 documented as of this encounter
--- OUTSIDE RECORDS SUMMARY | 2024-10-07 11:33 | XMS_ITS | Encounter Summary ---
Author Organization [employer] [facility] Address [address] [place] [address] 7 [place] [address] Care Team Providers Care Hooker On Name Role Phone Rosario Conrad MD Primary Care Provider + Encounter Details Date Type Department Care Team (Latest Contact Info) Description 05/31/2019 Abstract [facility] Dental, Provider, DDS Social History [...] Care Team ( st Contact Info) Description 10/26/2024 9:00 AM EDT Clinical Support [facility]ICINE [address] [place] [address] Juli oCesar Kemp, DEVANG [address] [place] [address] 12/15/2024 11:45 AM EDT Office Visit [facility] [address] [place] [address] Rosario Conrad MD [address] [place] [address] documented as of this encounter Visit Diagnoses Not on filedocumented in this encounter Care Teams Hooker On Relationship Specialty Start Date End Date Rosario Conrad MD [address] [place] [address] PCP - General Family Medicine 01/12/17 documented as of this encounter
--- OUTSIDE RECORDS SUMMARY | 2024-10-07 11:33 | XMS_ITS | Encounter Summary ---
Author Organization [email or web address] Address [address] [place] [address] 7 [place] [address] Care Team Providers Care Free Lance Model Name Role Phone Rosario Conrad MD Primary Care Provider + Encounter Details Date Type Department Care Team (Late st Contact Info) Description 11/12/2022 Abstract [facility] MEDICINE [address] [place] [address] oRsario Conrad MD [address] [place] [address] Social History Tobacco Use Types Packs/Day Years [...] Description 10/26/2024 9:00 AM EDT Clinical Support [facility] [address] [place] [address] Julio Cesar Kemp, DEVANG [address] [place] [address] 12/15/2024 11:45 AM EDT Office Visit [facility] [address] [place] [address] Rosario Conrad MD [address] [place] [address] documented as of this encounter Visit Diagnoses Not on filedocumented in this encounter Care Teams Free Lance Model Relationship Specialty Start Date End Date Rosario Conrad MD [address] [place] [address] PCP - General Family Medicine 01/12/17 documented as of this encounter
--- OUTSIDE RECORDS SUMMARY | 2024-10-07 11:33 | XMS_ITS | Encounter Summary ---
Author Organization [employer] Address [address] [place] [address] 7t [place] [address] Care Team Providers Care Needlemaker Name Role Phone Rosario Conrad MD Primary Care Provider + Reason for Visit * Reason Comments Med Refill Encounter Details Date Type Department Care Team (Late st Contact Info) Description 01/13/2024 Refill [facility] MED[facility]INE [address] [place] [address] Shawnee Odom MD [address] [place] [address] Opioid dependence in remission (CMS/HCC) Social History [...] Description 10/26/2024 9:00 AM EDT Clinical Support [facility]INE [address] [place] [address] Julio Cesar Kemp, DEVANG [address] [place] [address] 12/15/2024 11:45 AM EDT Office Visit [facility] [address] [place] [address] Rosario Conrad MD [address] [place] [address] documented as of this encounter Visit Diagnoses Diagnosis Opioid dependence in remission (CMS/HCC) Opioid type dependence, in remission documented in this encounter Additional Health Concerns Assessment Noted Time PHQ-9 Depression Total Score: 0 09/30/19 10:11 AM EDT documented as of this encounter Care Teams Needlemaker Relationship Specialty Start Date End Date Rosario Conrad MD [address] [place] [address] PCP - General Family Medicine 01/12/17 documented as of this encounter
--- OUTSIDE RECORDS SUMMARY | 2024-10-07 11:33 | XMS_ITS | Encounter Summary ---
Author Organization [employer] Address [address] [place] [address] 7 [place] [address] Care Team Providers Care Ergonomist Name Role Phone Rosario Conrad MD Primary Care Provider + Reason for Visit * Reason Comments Med Refill Encounter Details Date Type Department Care Team (Late st Contact Info) Description 02/11/2023 Refill [facility] [address] [place] [phone] Shawnee Odom MD [address] [place] [address] [phone] Opioid dependence in remission (CMS/HCC) Social History [...] Department Care Team (Late Contact Info) Description 10/26/2024 9:00 AM EDT Clinical Support [facility] [address] [place] [phone] Julio Cesar Kemp RN [address] [place] [address] 12/15/2024 11:45 AM EDT Office Visit [facility] [address] [place] [address] Rosario Conrad MD [address] [place] [address] documented as of this encounter Visit Diagnoses Diagnosis Opioid dependence in remission (CMS/[facility]) Opioid type dependence, in remission documented in this encounter Care Teams Ergonomist Relationship Specialty Start Date End Date Rosario Conrad MD [address] [place] [phone] PCP - General Family Medicine 01/12/17 documented as of this encounter
--- OUTSIDE RECORDS SUMMARY | 2024-10-07 11:33 | XMS_ITS | Encounter Summary ---
Author Organization [employer] Address [address] [facility] 7t [place] [address] Care Team Providers Care Cullet Trucker Name Role Phone Rosario Conrad MD Primary Care Provider + Encounter Details Date Type Department Care Team ([facility] st Contact Info) Description 10/21/2023 Orders Only [facility] MED[facility]INE [address] [place] [address] Provider, MD Rodolfo Social History Tobacco Use [...] Description 10/26/2024 9:00 AM EDT Clinical Support [facility] MED[facility]INE [address] [place] [phone] Julio Cesar Kemp RN [address] [place] [place] [phone] 12/15/2024 11:45 AM EDT Office Visit [facility] MED[facility]INE [address] [place] [phone] Rosario Conrad MD [address] [place] [phone] documented as of this encounter Procedures Procedure Name Priority Date/Time Associated Diagnosis Comments COLONOSCOPY Routine 09/11/2021 8:25 AM EDT documented in this encounter Results * Hm Colonoscopy (09/11/2021 8:25 AM EDT) us Historical Provider HEALTH MAINTENANCE Final Result documented in this encounter Visit Diagnoses Not on filedocumented in this encounter Additional Health Concerns Assessment Noted Time PHQ-9 Depression Total Score: 0 09/30/19 10:11 AM EDT documented as of this encounter Care Teams Cullet Trucker Relationship Specialty Start Date End Date Rosario Conrad MD [address] [place] [phone] PCP - General Family Medicine 01/12/17 documented as of this encounter
--- OUTSIDE RECORDS SUMMARY | 2024-10-07 11:33 | XMS_ITS | Clinical Summary ---
Author Organization [employer] Address [address] [facility] 7t [place] [address] Care Team Providers Care Well Drill Operator Rotary Drill Name Role Phone Rosario Conrad MD Primary Care Provider + Allergies No known active allergies Medications nicotine polacrilex (Nicorette) 4 MG gum Take 1 each by mouth every 2 (two) hours if needed. 0 Active Blood Pressure kit Active naloxone (Narcan) 4 mg/0.1 mL nasal spray Administer 4 mg into affected nostril(s) if needed for opioid reversal. May repeat every 2-3 minutes if needed, alternating nostrils, until medical assistance becomes available. Active albuterol (ProAir HFA) 108 (90 Base) MCG/ACT inhalerIndicatio ns:Mild intermittent asthma with acute exacerbation Inhale 1-2 puffs every 4 (four) hours if needed for wheezing or shortness of breath. 18 g 2 3 Active ibuprofen 600 MG tabletIndication s:Pain due to dental caries Take 1 tablet (600 mg) by mouth every 6 (six) hours if needed for mild pain for up to 20 doses. 20 tablet 4 Active lisinopril 10 MG tabletIndication s:Primary hypertension TAKE 1 TABLET BY MOUTH EVERY DAY 30 tablet 11 4 Active tamsulosin (Flomax) 0.4 MG 24 hr capsule Take 1 capsule (0.4 mg) by mouth at bedtime. 30 capsule 4 5 026 Active ammonium lactate (Amlactin) 12 % cream Apply topically if needed each day for dry skin. 385 g 1 5 Active triamcinolone (Kenalog) 0.5 % cream Apply topically 3 times daily. 45 g 1 5 Active rosuvastatin (Crestor) 40 MG tablet Take 1 tablet (40 mg) by mouth at bedtime. 30 tablet 11 5 026 Active buprenorphine-na loxone (Suboxone) 12-3 MG per sublingual filmIndications: Opioid dependence in remission (CMS/HCC) Place 1 Film under the tongue Once per day. 28 Film 1 5 025 Active ciclopirox (Penlac) 8 % solution Apply topically at bedtime. 6 mL 6 4 025 Active Problems Problem Noted Date Diagnosed Date [...] days if no improvement can come to [facility] for an appointment counceled to quit smoking counseled to come into our walk in [facility] clinic for IZ FU in 3 months. [...] lung disease 11/11/2011 Overview (04/01/2024): P[place] [facility] [place] Assessment & Plan (08/02/2024 1:55 [...] Encounters Date Type Department Care Team Description 09/14/2024 Telephone [facility] MED[facility]INE [address] [place] [phone] Rosario Conrad MD November08/31/2024 9:00 AM EDT Clinical Support [address] [address] Julio Cesar Kemp, DEVANG Uncomplicated opioid dependence (CMS/HCC) (Primary Dx) 08/31/2024 Travel 08/24/2024 Refill [facility] [address] [place] [phone] Julio Cesar Kemp RN Opioid dependence in remission (CMS/HCC) 08/04/2024 Telephone [facility] [address] [place] [phone] Era Christianson RN Results 08/04/2024 Orders Only [facility] [address] [place] [phone] Rosario Conrad MD Mixed hyperlipidemia (Primary Dx) 08/04/2024 Orders Only [address] [address] Shawnee Odom MD 08/02/2024 10:30 AM EDT Office Visit [address] [address] Rosario Conrad MD Benign hypertension (Primary Dx); [...] for immunization 08/02/2024 Travel 07/26/2024 Patient Outreach [address] [address] Rosario Conrad MD Pre-visit Planning (SDOH screening negative and tobacco screening negative) from Last 3 Months Immunizations Immunization Administration Dates Next Due Hep A, Adult [...] Recorded What is your housing situation today? Not on geetha e 10/02/[address] you li ve. Do you have problems with any of the following? None of the above 10/02/2024 Food Insecurity Answer Date Recorded Within the [...] Description 10/26/2024 9:00 AM EDT Clinical Support [address] [address] Julio Cesar Kemp, DEVANG [address] [place] [address] 12/15/2024 11:45 AM EDT Office Visit [address] [address] Rosario Conrad MD [address] [place] [address] Health Maintenance Due Date Last Done Comments CT Colonography 1967 FIT DNA/Cologuard 1967 FIT 1967 FOBT 1967 Sigmoidoscopy 1967 Alcohol/Substance Use Screening 1979 Hepatitis B Vaccines (2 of 3 - 19+ 3-dose series) 06/10/2006 05/13/2006 Zoster Vaccines (1 of 2) 2017 Dental Prophylaxis 11/30/2019 05/31/2019, 0 11/19/2018, 05/03/2012, Additional history exists COVID-19 Vaccine ( season) 2024 10/03/2021, 10/24/2020, 09/25/2020 Dental Oral Exam 07/23/2024 01/22/2024, , 05/31/2019, Additional history exists Depression Screening 09/29/2024 09/30/2023, 09/30/19 24 SDOH [...] on patient's age to complete this topic Pneumococcal Vaccine: 50+ Years Completed 10/23/2023, 05/12/2006 Influenza Vaccine Completed 08/02/2024, , 02/20/2021, Additional history exists HIV Screening Completed 08/04/2024, 12/23, 06/12/2021 Hepatitis C Screening Completed 08/04/2024 , 08/04/2024, 01/05/2023, Additional history exists HIB Vaccines Aged Out No longer eligi ble based on patient's age to complete this topic HPV Vaccines Aged Out No longer eligi ble based on patient's age to complete this topic IPV Vaccines Aged Out No longer eligi ble based on patient's age to complete this topic Meningococcal B Vaccine Aged Out No l onger eligible based on patient's age to complete this topic Meningococcal Vaccine Aged Out No daniela anirudh eligible based on patient's age to complete this topic RSV under 20 months Aged Out No longe r eligible based on patient's age to complete this topic Rotavirus Vaccines Aged Out No longer eligible based on patient's age to complete this topic Goals Goal Patient Goal Type Associated Problems Recent Progress Patient-Stated? Author Increase coping skills to promote long-term recovery and improve ability to perform daily activities General On track( 025 10:41 AM EDT) No Julio Cesar Kemp, DEVANG Reduce tobacco use (cigarettes, smokeless, etc) Tobacco Use No Julio Cesar Kemp, assembler product Procedure Name Priority Date/Time Associated Diagnosis Comments POCT FRANKLYN-14 URINE DRUG SCREEN Routine 08/31/2024 10:24 AM EDT Uncomplicated opioid dependence (CMS/HCC) HEPATITIS A ANTIBODY, TOTAL Routine 08/04/2024 11:31 AM EDT Mixed hyperlipidemia HEPATITIS C VIRAL RNA, QUANTITATIVE, REAL-TIME PCR Routine 08/04/2024 11:31 AM EDT Mixed hyperlipidemia HEPATITIS B SURFACE ANTIGEN, EIA Routine 08/04/2024 11:31 AM EDT Mixed hyperlipidemia HIV 1/2 ANTIGEN/ANTIBODY, FOURTH GENERATION W/RFL Routine 08/04/2024 11:31 AM EDT Mixed hyperlipidemia HEPATITIS C AB W/REFL TO HCV RNA, QN, PCR Routine 08/04/2024 11:31 AM EDT Mixed hyperlipidemia HEPATITIS B CORE AB TOTAL Routine 08/04/2024 11:31 AM EDT Mixed hyperlipidemia HEPATITIS B SURFACE ANTIBODY, QUALITATIVE Routine 08/04/2024 11:31 AM EDT Mixed hyperlipidemia SYPHILIS SCREEN Routine 08/04/2024 11:31 AM EDT Mixed hyperlipidemia HEPATIC FUNCTION PANEL Routine 08/04/2024 11:31 AM EDT BASIC METABOLIC PANEL Routine 08/04/2024 11:31 AM EDT Benign hypertension LIPID PANEL WITH REFLEX TO DIRECT LDL Routine 08/04/2024 11:31 AM EDT Benign hypertension INTRAORAL - COMPLETE SERIES OF RADIOGRAPHIC IMAGES Routine 01/22/2024 11:00 AM EDT PERIODIC ORAL EVALUATION - ESTABLISHED PATIENT Routine 01/22/2024 11:00 AM EDT HEMOGLOBIN A1C Routine 11/02/2023 10:19 AM EDT Benign hypertension HM COLONOSCOPY Routine 09/11/2021 8:25 AM EDT PROPHYLAXIS - ADULT Routine 05/31/2019 1 2:00 AM EST from Last 3 Months or Most Recently Relevant to Health Maintenance Results * POCT FRANKLYN-14 Urine Drug Screen (08/31/2024 10:24 AM EDT) THC Negative Cocaine Screen, Urine Negative Opiate Screen, Urine Negative Methamphetamine Screen Urine Negative Amphetamine Screen, Urine Negative Benzodiazepines Screen, Urine Negative Barbiturate Screen, Urine Negative Methadone Screen, Urine Negative Buprenophine Screen, Urine Positive TCA, Urine Negative MDMA Urine Negative ng/mL Oxycodone Screen, Urine Negative Phencyclidine (PCP), Urine Negative Fentanyl, Urine Negative Urine Urine specimen obtained by clean catch procedure / Unknown 08/31/2024 10:24 AM EDT us Shawnee Odom MD POINT OF CARE TEST ENTER/EDIT OR DERABLES Final Result * Syphilis Screen (08/04/2024 11:31 AM EDT) Syphilis Screen Nonreactive Nonreactive [facility] 08/04/2024 11:3 1 AM EDT 08/04/2024 1:35 PM EDT us Shawnee Odom MD LAB BLOOD ORDERABLES Final Resul t [facility] [address] [place] [address] [phone] * (ABNORMAL) Lipid Panel with Reflex to Direct LDL (08/04/2024 11:31 AM EDT) Triglycerides 242(H) <150 mg/dL [facility] Comment:Desirable Triglyceri de: less than 150 mg/dLBorderline High Triglyceride 150-199 mg/dLHigh Triglyceride: 200-499 mg/dLVery High Triglyceride: greater than or equal to 5OO mg/dL Cholesterol 219(H) <200 mg/dL [facility] Comment:Desirable Cholestero l: less than 200 mg/dLBorderline High Cholesterol: 200-239 mg/dLHigh Cholesterol: greater than 239 mg/dL LDL Cholesterol Calculated 133(H) <100 mg/dL [facility] Comment:Desirable LDL: less than 100 mg/dLNear Optimal/Above Optimal LDL: 110- 129 mg/dLBorderline High LDL: 130-159 mg/dLHigh LDL: 160-189 mg/dLVery High LDL: greater than or equal to 190 mg/dL HDL Cholesterol 38(L) >40 mg/dL [facility] Comment:Desirable HDL: great er than 40 mg/dL Note: This HDL assay may give artificially low results in patients with liver disease. Blood 08/04/2024 11:3 1 AM EDT 08/04/2024 1:35 PM EDT us Rosario Conrad MD LAB BLOOD ORDERABLES Fin al Result [facility] [address] [place] [address] [phone] * Hepatitis C Viral RNA, Quantitative, Real-Time PCR (08/04/2024 11:31 AM EDT) Hepatitis C Viral Load <15 NOT DETECTED NOT DETECTED IU/mL [facility] HCV Log PCR <1.18 NOT DETECTED NOT DETECTED Log IU/mL [facility] Comment:For additional infor maria teresa, please refer [email or web address](This link is being provided for informational/educational purposes only.)THIS TEST WAS PERFORMED AT:[employer] [place] [phone] MCNEIL MD 08/04/2024 11:3 1 AM EDT 08/04/2024 1:35 PM EDT Shawnee Odom MD LAB BLOOD ORDERABLES Final Resul t Performing Organization Address [facility] de Phone Number [facility] [address] [place] [phone] * (ABNORMAL) Hepatitis C Antibody with Reflex to HCV, RNA, Quantitative, Real- Time PCR (08/04/2024 11:31 AM EDT) Hepatitis C Antibody Reactive( A) Nonreactive [facility] Comment:Presumptive evidence of antibodies to HCV. 08/04/2024 11:3 1 AM EDT 08/04/2024 1:35 PM EDT Shawnee Odom MD LAB BLOOD ORDERABLES Final Resul t Performing Organization Address [facility] de Phone Number [facility] [address] [place] [phone] * Hepatitis A Antibody, Total (08/04/2024 11:31 AM EDT) Hepatitis A Antibody IgG REACTIVE Nonreactive [facility] Comment:The presence of IgG anti-HAV implies past HAV infection(recent or distant) or vaccination against HAV. 08/04/2024 11:3 1 AM EDT 08/04/2024 1:35 PM EDT Shawnee Odom MD LAB BLOOD ORDERABLES Final Resul t Performing Organization Address [facility]/ZIP Co de Phone Number [facility] [address] [place] [phone] * Hepatitis B surface antigen, EIA (08/04/2024 11:31 AM EDT) Hepatitis B Surface Ag Negative Negative [facility] 08/04/2024 11:3 1 AM EDT 08/04/2024 1:35 PM EDT Shawnee Odom MD LAB BLOOD ORDERABLES Final Resul t Performing Organization Address [facility] Co de Phone Number [facility] [address] [place] [phone] * Hepatitis B Core Antibody, Total (08/04/2024 11:31 AM EDT) Hepatitis B Core Antibody Nonreactive Nonreactive [facility] 08/04/2024 11:3 1 AM EDT 08/04/2024 1:35 PM EDT Shawnee Odom MD LAB BLOOD ORDERABLES Final Resul t Performing Organization Address [facility] de Phone Number [facility] [address] [place] [phone] * HIV-1/2 Antigen and Antibodies, Fourth Generation, with Reflexes (08/04/2024 11:31 AM EDT) HIV AB/AG Nonreactive Nonreactive [facility] Comment:HIV-1 p24 Ag and/or HIV-1/HIV-2 Ab not detected.A test result that is nonreactive does not exclude thepossibility of exposure to or infection with HIV-1 and/orHIV-2. Nonreactive results in this assay for individualswith prior exposure to HIV-1 and/or HIV-2 may be due toantigen and antibody levels that are below the limit ofdetection of this assay.The [employer] HIV Ag/Ab Combo assay result andsupplemental assay results should be interpreted inconjunction with the patient's clinical presentation,history and other laboratory results. If the results areinconsistent with clinical evidence, additional testing issuggested to confirm the result. 08/04/2024 11:3 1 AM EDT 08/04/2024 1:35 PM EDT Shawnee Odom MD LAB BLOOD ORDERABLES Final Resul t Performing Organization Address [facility] Co de Phone Number [facility] [address] [place] [phone] * Hepatitis B Surface Antibody, Qualitative (08/04/2024 11:31 AM EDT) Pathologist [facility] ~Hepatitis B Surface Antibody REACTIVE Nonreactive [facility] Comment:REACTIVE: > 11.99 mI U/mL 08/04/2024 11:3 1 AM EDT 08/04/2024 1:35 PM EDT us Shawnee Odom MD LAB BLOOD ORDERABLES Final Resul t Performing Organization Address [facility] de Phone Number [facility] [address] [place] [phone] * (ABNORMAL) Hepatic Function Panel (08/04/2024 11:31 AM EDT) Pathologist [facility] Bilirubin, Total 0.6 0.0 - 1.0 mg/dL [facility] Bilirubin, Direct 0.2 0.0 - 0.5 mg/dL [facility] Aspartate Amino Transferase 69(H) 5 - 37 U/L [facility] Alanine Aminotransferase 32 0 - 40 U/L [facility] Total Protein 7.4 6.5 - 8.0 g/dL [facility] Albumin Level 4.0 3.5 - 5.0 g/dL [facility] Alkaline Phosphatase 81 39 - 117 U/L [facility] 08/04/2024 11:3 1 AM EDT 08/04/2024 1:35 PM EDT us Shawnee Odom MD LAB BLOOD ORDERABLES Final Resul t Performing Organization Address [facility] Co de Phone Number [facility] [address] [place] [phone] * (ABNORMAL) Basic Metabolic Panel (08/04/2024 11:31 AM EDT) Sodium 138 135 - 145 mmol/L [facility] Potassium 4.2 3.3 - 5.1 mmol/L [facility] Chloride 107 96 - 108 mmol/L [facility] Carbon Dioxide 24 22 - 29 mmol/L [facility] Anion Gap 11(L) 12 - 20 [facility] Urea Nitrogen (BUN) 17(H) 9 - 16 mg/dL [facility] Creatinine, Serum 0.85 0.5 - 1.4 mg/dL [facility] Estimated Glomerular Filt Rate >60 [facility] Comment:Chronic Kidney Disea se: Estimated GFR < 60 mL/min/1.03a6Nsyxpu Kidney Disease: Estimated GFR < 15 mL/min/1.73m2 Glucose 119(H) 60 - 115 mg/dL [facility] Calcium 8.3(L) 8.4 - 10.2 mg/dL [facility] Blood Venous blood specimen / Unknown 08/04/2024 11:31 AM EDT 08/04/2024 1:35 PM EDT us Rosario Conrad MD LAB BLOOD ORDERABLES Fin al Result Performing Organization Address City/[facility]/ZIP Co de Phone Number [facility] [address] [place] [phone] * Hemoglobin A1c (11/02/2023 10:19 AM EDT) Hemoglobin A1c 5.8 <6.0 % [facility] Comment:Hemoglobin A1C Refer ence Range Adults: 4.8 - 6.0 % Non diabetic: < 6.0 % Goal: < 7.0 %Additional Action Suggested: > 8.0 %Note: Hemoglobin A1c results are invalid for patients with abnormal amounts of HbF. Blood transfusions may impact the HbA1c concentration in the patient sample. Estimated Average Glucose 120 mg/dL [facility] Comment:eAG = Estimated ave rage glucose which is %A1C expressed asaverage glucose, using the formula of the I8E-IyjzslfBxppwxt Glucose study (ADAG), Diabetes Care, Vol.31,#8,Dec. 2007 Blood Venous blood specimen / Unknown 11/02/2023 10:19 AM EDT 11/02/2023 11:41 AM EDT Rosario Conrad MD LAB BLOOD ORDERABLES Fin al Result [facility] [address] [place] [phone] * Hm Colonoscopy (09/11/2021 8:25 AM EDT) us Historical Provider HEALTH MAINTENANCE Final Result from Last 3 Months or Most Recently Relevant to Health Maintenance Insurance [facility] - HSN PARTIAL (MEDICAID) Care Teams Well Drill Operator Rotary Drill Relationship Specialty Start Date End Date Rosario Conrad MD [address] [place] [address] PCP - General Family Medicine 01/12/17
== END 2024-10-07 12:04 | disposition home or self-care (01) ==
LOC: HO.HUSH 11:05
PROVIDERS: PCP Internal Medicine; Visit Provider Urology
DX: R68.82 Decreased libido (principal); R35.1 Nocturia; N32.0 Bladder-neck obstruction
CPT/HCPCS: 99204

== ENCOUNTER → 2024-10-07 11:04 | Outpatient (BNVA) | payer OTHER, SELFPAY | PROVIDERS: PCP Internal Medicine; Visit Provider Urology | DX: N40.1 Benign prostatic hyperplasia with lower urinary tract symptoms (principal); R35.1 Nocturia; R68.82 Decreased libido; N32.0 Bladder-neck obstruction | CPT/HCPCS: 51798; 99202 ==

== ENCOUNTER 2025-01-17 10:57 | Outpatient (AMB) | payer OTHER, SELFPAY ==
--- NOTE | 2025-01-17 11:22 | A.OFFVIS_ITS ---
Intake Visit Reasons: UroFlow/Cysto Intake Note: Patient is present for: cystoscopy Urology Medication:terazosin Blood Thinner:NONE Shipfitters Supervisor Required: Yes Accompanied by: Self / Same As Patient Allergies No Known Allergies Allergy (Verified 01/17/25 11:23) HPI Comments Details: Rehan is a pleasant Maldivian-speaking male. He is a patient of Dr. Conrad. Seen for following urologic conditions - lower urinary tract symptoms Maldivian translation provided by qualified supervisor blast furnace Three-month follow-up on medication Here for cystoscopy and uroflow Did not complete baseline lab work High normal HbA1c Long-term Suboxone use High intensity statin therapy High PVR today with difficulty emptying On terazosin Cystoscopy open bladder neck with bladder that has mild injection Recommend decreasing coffee Refill terazosin Repeat lab work, follow-up six-month Lower urinary tract symptoms Primary issue hesitancy and incomplete emptying Double emptying Nocturia x3 Current medications include terazosin Concurrent conditions include hypertension, dyslipidemia, opiate use PSA - 03/11 0.5 PFSH Medical History Back pain Chronic obstructive pulmonary disease (COPD) Colon cancer screening Depression Hand pain Hx of hepatitis C Opioid dependence Family History Maternal Grandmother Cancer Social History Household Members: Family Alcohol intake: current Alcohol intake frequency: holidays/special occasions only Tobacco use type: Cigar Cigarettes Per Day: 10 Review of Systems Const Denies chills and Denies fever(s) Card Reports no additional complaints and Denies syncope Resp Denies cough GI Denies abdominal pain and Denies heartburn Reports as per HPI and Denies change in libido Neuro Denies syncope Psych Denies change in libido Endo Denies change in libido Physical Exam Const General: cooperative, healthy appearing, comfortable and no acute distress Orientation/consciousness: patient oriented x3 HEENT Face and sinus: Yes normal facial exam Mouth: moist mucous membranes Neck Neck: Yes normal visual inspection, Yes full ROM and Yes trachea midline Chest Chest palpation & inspection: normal inspection of the chest Resp Effort & Inspection: normal respiratory effort, able to speak in complete sentences and no respiratory distress GI Inspection: Yes normal to inspection Back/Spine/Pelvis Cervical Spine: normal cervical lordosis Thoracic/Lumbar Spine: thoracic and lumbar spine normal to inspection Skin General skin exam: no rashes or lesions noted Neuro General: patient oriented x3, gait normal, tone normal and moves all extremities Extrem General: Yes normal to inspection and Yes capillary refill normal Office Procedures Cystoscopy Consent Discussed risk and benefit or proposed procedure with the patient. Information consent for procedure given to the patient. Discussed technical aspects, risks, benefits and alternatives in full. Addressed all of the patient's questions and concerns regarding the procedure. The patient demonstrated knowledge and understanding. They wish to proceed with this procedure. Preparation The patient was prepped in the usual manner. A lock tender was present and in the room. Genitalia was prepped with betadine solution in a sterile manner. Lidocaine Jelly 2% was placed into the urethra and 16Fr flexible Olympus cystoscope was inserted into the meatus after adequate lubrication. Procedure Cystoscopy performed using a disposable Urovue digital 16 Greenlandic cystoscope. Meatus circumcised Urethra anterior and posterior urethra normal Prostatic Urethra unremarkable Bladder examination with retroflexion of cystoscope Bladder Orifices normal shape and position Bladder Capacity Normal Trabeculations Grade 0 Cellule Formation None Diverticulum Formation None Mucosal Erythema injected mucosa Bladder Tumor None [id number] DISPOSABLE SCOPE URO-G FLEXIBLE SCOPE Procedure code (CPT) selection complete Office Meds lidocaine HCl 2 % mucosal jelly in applicator Performing Provider: Harrison Ray MD [facility] Administered by: Sharlene Richardson RN on 01/17/25 11:32 Dose Route Admin Location Dispensed Lot Number Expiration Date [employer] Financial [employer]st 10 mL intra-urethral 10 mL nitrofurantoin monohydrate/macrocrystals 100 mg capsule Performing Provider: Harrison Ray MD Performing [facility] Administered by: Sharlene Richardson RN on 01/17/25 11:32 Dose Route Admin Location Dispensed Lot Number Expiration Date [employer] 100 mg PO 1 cap Assessment & Plan Assessment & Plan (1) Bladder outlet obstruction: Code(s): N32.0 - Bladder-neck obstruction Category: Medical (2) Nocturia more than twice per night: Code(s): R35.1 - Nocturia Category: Medical Plan Six-month follow-up PVR Orders: Orders AMB Cystoscopy Today N32.0 - Bladder-neck obstruction Testosterone, Free/Total Today R68.82 - Decreased libido Medications: Changed From terazosin 5 mg PO BEDTIME 30 days 30 caps 1RF N32.0 - Bladder-neck obstruction To terazosin 5 mg PO BEDTIME 90 caps 1RF 90 days N32.0 - Bladder-neck obstruction Patient Instructions: This note is constructed using voice recognition software. While every effort has been made to ensure accuracy business insight and analytics manager errors may have been included. Imaging studies, laboratory and physical exam results were discussed and reviewed in detail. No major barriers to patient understanding were identified. An opportunity to ask questions regarding the treatment plan was provided. All questions were answered. The patient expressed understanding and agreement with the above treatment plan. The patient is aware they should contact our office by phone for worsening of their current condition or the appearance of new urologic symptoms. Compliance is encouraged with any medications and followup testing that is ordered. It is a privilege to participate in the urologic care of your patient. If you have any questions or concerns regarding treatment for the above conditions, or other urologic issues, please do not hesitate to contact me. The office telephone contact is [phone]. Sincerely, Dr Harrison Ray MD, [facility] - Urology Compassionate Specialist Care for the Genitourinary System Coding Level of Care Code Est Pt Level 3 (21781) Complex EM visit Add On G2211 Diagnoses Bladder outlet obstruction N32.0 Nocturia more than twice per night R35.1 CPT Codes Cystoscopy - CPT: 89189-[id number] ([id number])
--- OUTSIDE RECORDS SUMMARY | 2025-01-17 11:53 | XMS_ITS | Encounter Summary ---
Author Organization [employer] Address [address] [place] [id number] Care Team Providers Care Hospital Unit Clerk Name Role Phone Rosario Conrad MD Primary Care Provider + Reason for Visit * Reason Comments Med Refill Encounter Details Date Type Department Care Team (Late st Contact Info) Description 02/11/2023 Refill [facility] MEDICINE [address] [place] [address] [phone] Shawnee Odom MD [address] [place] [address] [phone] Opioid dependence in remission (CMS/HCC) Social History [...] Department Care Team (Late Contact Info) Description 02/15/2025 9:00 AM EDT Office Visit [facility] MEDICINE [address] [place], [place] [phone] Shawnee Odom MD [address] [place], [place] [phone] documented as of this encounter Visit Diagnoses Diagnosis Opioid dependence in remission (CMS/[facility]) Opioid type dependence, in remission documented in this encounter Care Teams Hospital Unit Clerk Relationship Specialty Start Date End Date Rosario Conrad MD [address] [place] [phone] PCP - General Family Medicine 01/12/17 documented as of this encounter
--- OUTSIDE RECORDS SUMMARY | 2025-01-17 11:53 | XMS_ITS | Encounter Summary ---
Author Organization [employer] Address [address] [place] [address] [place], [place] [address] Care Team Providers Care Process Control Specialist Name Role Phone Rosario Conrad MD Primary Care Provider + Encounter Details Date Type Department Care Team (Late st Contact Info) Description 11/12/2022 Abstract [facility] MEDICINE [address] [place] [address] [phone] Rosario Conrad MD [address] [place] [address] [phone] Social History Tobacco Use Types Packs/Day Years [...] Description 02/15/2025 9:00 AM EDT Office Visit [facility] MEDICINE [address] [place], [place] [phone] Shawnee Odom MD [address] [place], [place] [phone] documented as of this encounter Visit Diagnoses Not on filedocumented in this encounter Care Teams Process Control Specialist Relationship Specialty Start Date End Date Rosario Conrad MD [address] [place], [place] [phone] PCP - General Family Medicine 01/12/17 documented as of this encounter
--- OUTSIDE RECORDS SUMMARY | 2025-01-17 11:53 | XMS_ITS | Encounter Summary ---
Author Organization [employer] Address [address] [place] [address] [address] [place] [address] Care Team Providers Care Kerrick Kleaner Operator Name Role Phone Rosario Conrad MD Primary Care Provider + Reason for Visit * Reason Comments Med Refill Encounter Details Date Type Department Care Team (Late st Contact Info) Description 01/13/2024 Refill [facility] MEDICINE [address] [place], [place] [phone] Shawnee Odom MD [address] [place] [address] Opioid dependence in remission (CMS/HCC) Social History [...] Care Team (Late st Contact Info) Description 02/15/2025 9:00 AM EDT Office Visit [facility] MEDICINE [address] [place] [phone] Shawnee Odom MD [address] [place] [phone] documented as of this encounter Visit Diagnoses Diagnosis Opioid dependence in remission (CMS/HCC) Opioid type dependence, in remission documented in this encounter Additional Health Concerns Assessment Noted Time PHQ-9 Depression Total Score: 0 09/30/19 24 10:11 AM EDT documented as of this encounter Care Teams Kerrick Kleaner Operator Relationship Specialty Start Date End Date Rosario Conrad MD [address] [place] [address] [phone] PCP - General Family Medicine 01/12/17 documented as of this encounter
--- OUTSIDE RECORDS SUMMARY | 2025-01-17 11:53 | XMS_ITS | Encounter Summary ---
Author Organization [facility] Address [address] [place] [address] [address] [place] [address] Care Team Providers Care Crime Investigator Special Agent Name Role Phone Rosario Conrad MD Primary Care Provider + Encounter Details Date Type Department Care Team (Latest Contact Info) Description 05/31/2019 Abstract [facility] CONVERSIONS Dental, Provider, DDS Social History [...] Care Team ( st Contact Info) Description 02/15/2025 9:00 AM EDT Office Visit [facility] MEDICINE [address] [place] [address] Shawnee Odom MD [address] [place] [address] documented as of this encounter Visit Diagnoses Not on filedocumented in this encounter Care Teams Crime Investigator Special Agent Relationship Specialty Start Date End Date Rosario Conrad MD [address] [place] [phone] PCP - General Family Medicine 01/12/17 documented as of this encounter
--- OUTSIDE RECORDS SUMMARY | 2025-01-17 11:53 | XMS_ITS | Encounter Summary ---
Author Organization [employer] Address [address] [place] [address] 7 [place] [address] Care Team Providers Care Group Art Supervisor Name Role Phone Rosario Conrad MD Primary Care Provider + Reason for Visit * Reason Comments Med Refill Encounter Details Date Type Department Care Team (Late st Contact Info) Description 07/29/2023 Refill [facility] MEDICINE [address] [place], [place] [phone] Shawnee Odom MD [address] [place], [place] [phone] Opioid dependence in remission (CMS/HCC) Social History [...] Description 02/15/2025 9:00 AM EDT Office Visit [facility] MEDICINE [address] [place] [address] [phone] Shawnee Odom MD [address] [place] [phone] documented as of this encounter Visit Diagnoses Diagnosis Opioid dependence in remission (CMS/[facility]) Opioid type dependence, in remission documented in this encounter Care Teams Group Art Supervisor Relationship Specialty Start Date End Date Rosario Conrad MD [address] [place] [address] [phone] PCP - General Family Medicine 01/12/17 documented as of this encounter
--- OUTSIDE RECORDS SUMMARY | 2025-01-17 11:53 | XMS_ITS | Clinical Summary ---
Author Organization [employer] Address [address] [place] [address] [address] [place] [address] Care Team Providers Care Foundry Finisher Name Role Phone Rosario Conrad MD Primary [...] mouth at bedtime. 30 capsule 4 5 08/03/19 26 Active ammonium lactate (Amlactin) 12 % cream Apply topically if needed each day for dry skin. 385 g 1 5 Active rosuvastatin (Crestor) 40 MG tablet Take 1 tablet (40 mg) by mouth at bedtime. 30 tablet 11 5 08/05/19 26 Active triamcinolone (Kenalog) 0.5 % cream APPLY TOPICALLY TO AFFECTED AREA(S) THREE TIMES DAILY 45 g 1 5 Active buprenorphine-na loxone (Suboxone) 12-3 MG per sublingual filmIndications: Opioid dependence in remission (CMS/HCC) Place 1 Film under the tongue Once per day. 28 Film 1 5 02/09/20 25 Active Active Problems Problem Noted Date Diagnosed Date Primary osteoarthritis of both hips 12/15/2024 Assessment & Plan (12/15/2024 3:04 PM EDT): Use Tylenol as needed, will refer to PT Lower urinary tract symptoms (LUTS) 08/02/2024 Assessment [...] days if no improvement can come to [facility] for an appointment counceled to quit smoking counseled to come into our walk in Covmt clinic for IZ FU in 3 months. [...] activity. Check home BP BIW and prn CP/CLUOD/PUENTES Received flu IZ today Assessment & Plan (09/26/2022 11:31 AM EDT): Uncontrolled today, could be related to acute asthma exacerbation treat asthma, counseled to quit smoking Continue lisinopril 10mg Counseled re low salt diet/increase moderate physical activity. Check home BP BIW and prn CP/CLOUD/PUENTES Non smoking patient. FU with me in 3 months with labs. Mixed hyperlipidemia 04/15/2022 Assessment & Plan (12/15/2024 3:04 PM EDT): Crestor dose increased, LDL was not at goal. Discussed with patient importance of compliance with medication and diet. Follow-up lipids in 3 to 4 months along with LFTs Assessment & Plan (05/27/2024 8:25 PM EST): [...] 6m Primary osteoarthritis of right knee 04/15/2022 Assessment & Plan (12/15/2024 3:04 PM EDT): Use Tylenol as needed, will refer to PT Shoulder pain 04/15/2022 Assessment & Plan (08/02/2024 [...] surgery Mild persistent asthma without complication 03/26 Vitamin D deficiency 04/15/2022 Assessment & Plan [...] if needed. Check PSA Depressive disorder 02/05/2012 Assessment & Plan (12/15/2024 3:07 PM EDT): Overall he is doing well since he started off the replacement therapy, he has not needed additional medications He has been down lately as his left the OR and he cannot join her until 2 weeks from now. He feels safe at home and is able to reach out for safety Continue to follow closely with Suboxone program, health coach and CRS team. Chronic obstructive lung disease 11/11/2011 Overview (04/01/2024): [place] [facility] [place] Assessment & Plan (08/02/2024 1:55 [...] Assessment & Plan (09/03/2022 10:43 AM EDT): Long-term maintenance stage in his recovery / in remission. Continue current treatment plan. Suboxone 12/3 mg daily Will ask pt's primary care provider if pt is due for a lab (our screening labs can be included). Assessment & Plan (07/09/2022 10:35 AM EST): Long-term maintenance stage in his recovery / in remission. Continue current treatment plan. Suboxone 12/3 mg daily Assessment & Plan (05/14/2022 5:10 AM EST): Long-term maintenance stage in his recovery / in remission. Continue current treatment plan. Suboxone 12/3 mg daily Tobacco dependence syndrome [...] to acupuncture clinic FU in 3 months Resolved Problems Problem Noted Date Diagnosed Date Resolved Date Contact with and (suspected) exposure to covid-19 04/15/2022 12/15/2024 COVID-19 04/15/2022 12/15/2024 Vesical tenesmus 04/15/2022 12/15/2024 Encounters Date Type Department Care Team Description 12/21/2024 9:00 AM EDT Clinical Support [address] [address] Asia Crain RN Uncomplicated opioid dependence (CMS/[facility]) 12/21/2024 Travel 12/15/2024 11:45 AM EDT Office Visit [address] [address] Rosario Conrad MD Mixed hyperlipidemia (Primary Dx); Primary osteoarthritis of right knee; Primary osteoarthritis of both hips; Depressive disorder 12/15/2024 Travel 12/14/2024 Refill [facility] [address] [place] [phone] Julio Cesar Kemp, RN Opioid dependence in remission (CMS/HCC) 12/14/[address] [address] Rosario Conrad MD Chart Prep 12/07/2024 Patient Outreach [address] [address] Rosario Conrad MD Pre-visit Planning (SDOH screening negative and tobacco screening positive) 11/20/2024 Refill [facility] [address] [place] [phone] oRsario Conrad MD 10/26/2024 9:00 AM EDT Clinical Support [address] [address] Julio Cesar Kemp, RN Uncomplicated opioid dependence ([facility]) (Primary Dx) 10/26/2024 Travel 10/18/2024 Refill [facility] [address] [place] [address] Juan Murphy, RN Opioid dependence in remission ([facility]) from Last 3 Months Immunizations Immunization Administration [...] Used Date Smoking Tobacco: Every Day Cigarettes Passive Smoke Exposure: Current Smokeless Tobacco: Never Tobacco Cessation:Ready to Q uit: Not Asked; Counseling Given: Not Answered Alcohol Use Standard Drinks/Week Comments Not Currently 0 (1 standard drink = 0.6 oz pur e alcohol) rare Alcohol Answer Date Recorded Frequency of Alcohol Consumption Not on file 09/30/2023 Average Number of Drinks Not on file 024 Frequency of Binge Drinking Not on file 12/2023 Score 0 09/30/2023 Depression Answer Date Recorded Patient Health Questionnaire-9 Score 5 12/15/2024 Patient Health Questionnaire-9 Score 5 12/15/2024 Last PHQ-9: Questionnaire Data Not on file 0 12/15/2024 Housing Stability Answer Date Recorded What is your housing situation today? I have nirmal carey 12/07/[address] you li ve. Do you have problems with any of the following? None of the above 12/07/2024 Food Insecurity Answer Date Recorded Within the [...] Date Recorded Patient Health Questionnaire-2 Score 0 12/15/2024 Internet Access Answer Date Recorded Internet Access [...] Sign Reading Time Taken Comments Blood Pressure 114/76 12/15/2024 11:47 AM EDT Pulse 58 12/15/2024 11:47 AM EDT Temperature 36.3 C (97.3 F) 12/15/2024 11:47 AM EDT Respiratory Rate 18 12/15/2024 11:47 AM EDT Oxygen Saturation 99% 08/02/2024 10:31 AM EDT Inhaled Oxygen Concentration - - Weight 99.6 kg (219 lb 8 oz) 12/15/2024 11:47 AM EDT Height 182.9 cm (6') 12/15/2024 11:47 AM EDT Body Mass Index 29.77 12/15/2024 11:47 AM EDT Plan of Treatment Upcoming Encounters Date Type Department Care Team (Late st Contact Info) Description 02/15/2025 9:00 AM EDT Office Visit [facility] [address] [place] [address] Shawnee Odom MD [address] [place] [address] Health Maintenance Due Date Last Done Comments CT Colonography 1967 FIT DNA/Cologuard 1967 FIT 1967 FOBT 1967 Sigmoidoscopy 1967 Zoster Vaccines (1 of 2) 2017 Dental Prophylaxis 11/30/2019 05/31/2019, 0 11/19/2018, 05/03/2012, Additional history exists COVID-19 Vaccine ( season) 2024 10/03/2021, 10/24/2020, 09/25/2020 Dental Oral Exam 07/23/2024 01/22/2024, , 05/31/2019, Additional history exists Dental X-Ray: Bitewings 01/22/2025 01/22/20 24, 08/14/2023, 03/07/2022, Additional history exists Influenza Vaccine (#1) 2025 , 03/26/2023, 02/20/2021, Additional history exists SDOH Screening 12/07/2025 12/07/2024 Alcohol/Substance Use Screening 12/15/2025 12/15/2024 Depression Screening 12/15/2025 12/15/2024, 12/16/19 25 Disability Screening 12/15/2025 12/15/2024 Tobacco Screening 12/15/2025 12/15/2024 Colonoscopy 09/11/2026 09/11/2021 Colorectal Cancer Screening 09/11/2026 [...] on patient's age to complete this topic Hepatitis B Vaccines Discontinued 05/13/2006 Pneumococcal Vaccine: 50+ Years Completed 10/23/2023, 05/12/2006 HIV Screening Completed 08/04/2024, 12/23, 06/12/2021 Hepatitis [...] to perform daily activities General On track( 11:42 AM EDT) No Julio Cesar Kemp, DEVANG Reduce tobacco use (cigarettes, smokeless, etc) Tobacco Use On track( 025 11:42 AM EDT) No Julio Cesar Kemp, seasonal clerk Procedure Name Priority Date/Time Associated Diagnosis Comments POCT FRANKLYN-14 URINE DRUG SCREEN Routine 10/26/2024 10:22 AM EDT Uncomplicated opioid dependence (CMS/HCC) HEPATITIS C AB W/REFL TO HCV RNA, QN, PCR Routine 08/04/2024 11:31 AM EDT Mixed hyperlipidemia HIV 1/2 ANTIGEN/ANTIBODY, FOURTH GENERATION W/RFL Routine 08/04/2024 11:31 AM EDT Mixed hyperlipidemia LIPID PANEL WITH REFLEX TO DIRECT LDL Routine 08/04/2024 11:31 AM EDT Benign hypertension INTRAORAL - COMPLETE SERIES OF RADIOGRAPHIC IMAGES Routine 01/22/2024 11:00 AM EDT PERIODIC ORAL EVALUATION - ESTABLISHED PATIENT Routine 01/22/2024 11:00 AM EDT HM COLONOSCOPY Routine 09/11/2021 8:25 AM EDT PROPHYLAXIS - ADULT Routine 05/31/2019 1 2:00 AM EST from Last 3 Months or Most Recently Relevant to Health Maintenance Results * POCT FRANKLYN-14 Urine Drug Screen (10/26/2024 10:22 AM EDT) THC Negative Cocaine Screen, Urine [...] obtained by clean catch procedure / Unknown 10/26/2024 10:22 AM EDT Shawnee Odom MD POINT OF CARE TEST ENTER/EDIT OR DERABLES Final Result * (ABNORMAL) Lipid Panel with Reflex to Direct LDL (08/04/2024 11:31 AM EDT) Triglycerides 242(H) <150 mg/dL [facility] Comment:Desirable Triglyceri de: less than 150 mg/dLBorderline High Triglyceride 150-199 mg/dLHigh Triglyceride: 200-499 mg/dLVery High Triglyceride: greater than or equal to 5OO mg/dL Cholesterol 219(H) <200 mg/dL [facility] Comment:Desirable Cholestero l: less than 200 mg/dLBorderline High Cholesterol: 200-239 mg/dLHigh Cholesterol: greater than 239 mg/dL LDL Cholesterol Calculated 133(H) <100 mg/dL [facility] Comment:Desirable LDL: less than 100 mg/dLNear Optimal/Above Optimal LDL: 110- 129 mg/dLBorderline High LDL: 130-159 mg/dLHigh LDL: 160-189 mg/dLVery High LDL: greater than or equal to 190 mg/dL HDL Cholesterol 38(L) >40 mg/dL [facility] Comment:Desirable HDL: great er than 40 mg/dL Note: This HDL assay may give artificially low results in patients with liver disease. Blood 08/04/2024 11:3 1 AM EDT 08/04/2024 1:35 PM EDT us Rosario Conrad MD LAB BLOOD ORDERABLES Fin al Result Performing Organization Address [facility]/ZIP Co de Phone Number [facility] [address] [place] [phone] * (ABNORMAL) Hepatitis C Antibody with Reflex to HCV, RNA, Quantitative, Real- Time PCR (08/04/2024 11:31 AM EDT) Hepatitis C Antibody Reactive( A) Nonreactive [facility] Comment:Presumptive evidence of antibodies to HCV. 08/04/2024 11:3 1 AM EDT 08/04/2024 1:35 PM EDT us Shawnee Odom MD LAB BLOOD ORDERABLES Final Resul t Performing Organization Address [facility] Co de Phone Number [facility] [address] [place] [phone] * HIV-1/2 Antigen and Antibodies, Fourth Generation, with Reflexes (08/04/2024 11:31 AM EDT) HIV AB/AG Nonreactive Nonreactive [facility] Comment:HIV-1 p24 Ag and/or HIV-1/HIV-2 Ab not detected.A test result that is nonreactive does not exclude thepossibility of exposure to or infection with HIV-1 and/orHIV-2. Nonreactive results in this assay for individualswith prior exposure to HIV-1 and/or HIV-2 may be due toantigen and antibody levels that are below the limit ofdetection of this assay.The [employer] HIV Ag/Ab Combo assay result andsupplemental assay results should be interpreted inconjunction with the patient's clinical presentation,history and other laboratory results. If the results areinconsistent with clinical evidence, additional testing issuggested to confirm the result. 08/04/2024 11:3 1 AM EDT 08/04/2024 1:35 PM EDT Shawnee Odom MD LAB BLOOD ORDERABLES Final Resul t [facility] [address] [place] [phone] * Colonoscopy (09/11/2021 8:25 AM EDT) us Historical Provider HEALTH MAINTENANCE Final Result from Last 3 Months or Most Recently Relevant to Health Maintenance Insurance [facility] 2 DENTAL - HSN PARTIAL (MEDICAID) Care Teams Foundry Finisher Relationship Specialty Start Date End Date Rosario Conrad MD [address] [place] [phone] PCP - General Family Medicine 01/12/17
--- OUTSIDE RECORDS SUMMARY | 2025-01-17 11:53 | XMS_ITS | Encounter Summary ---
Author Organization [employer] Address [address] [place] [address] [address] [place] [address] Care Team Providers Care Electrician Elevator Maintenance Name Role Phone Rosario Conrad MD Primary Care Provider + Encounter Details Date Type Department Care Team ([facility] st Contact Info) Description 10/21/2023 Orders Only [facility] [address] [place] [address] Provider, MD Rodolfo Social History Tobacco Use [...] Description 02/15/2025 9:00 AM EDT Office Visit [facility] [address] [place] [phone] Shawnee Odom MD [address] [place] [phone] documented as of this encounter Procedures Procedure Name Priority Date/Time Associated Diagnosis Comments HM COLONOSCOPY Routine 09/11/2021 8:25 AM EDT documented in this encounter Results * Hm Colonoscopy (09/11/2021 8:25 AM EDT) Historical Provider HEALTH MAINTENANCE Final Result documented in this encounter Visit Diagnoses Not on filedocumented in this encounter Additional Health Concerns Assessment Noted Time PHQ-9 Depression Total Score: 0 09/30/19 24 10:11 AM EDT documented as of this encounter Care Teams Electrician Elevator Maintenance Relationship Specialty Start Date End Date Rosario Conrad MD [address] [place] [phone] PCP - General Family Medicine 01/12/17 documented as of this encounter
== END 2025-01-17 11:54 | disposition home or self-care (01) ==
LOC: HO.HUSH 10:58
PROVIDERS: PCP Internal Medicine; Visit Provider Urology
DX: N32.0 Bladder-neck obstruction (principal); R35.1 Nocturia
CPT/HCPCS: 52000; 99213

== ENCOUNTER → 2025-01-17 10:57 | Outpatient (BNVA) | payer OTHER, SELFPAY | PROVIDERS: PCP Internal Medicine; Visit Provider Urology | DX: N32.0 Bladder-neck obstruction (principal); R35.1 Nocturia | CPT/HCPCS: 52000; 99212 ==

== ENCOUNTER 2025-01-17 12:00 | Outpatient (REF) | payer OTHER, SELFPAY ==
[2025-01-21 22:09] LABS: Testosterone, Free 22.9 pg/mL (35.0-155.0)
== END 2025-01-17 12:01 | disposition home or self-care (01) ==
LOC: HO.10HDL 12:00
PROVIDERS: Visit Provider Urology
DX: R68.82 Decreased libido (principal)
CPT/HCPCS: 36415; 84402; 84403